=== PATIENT | female | born 1955 | race Caucasian/White ===

== ENCOUNTER 2020-06-29 04:24 | Inpatient (IN) ==
[2020-06-29] MEDS ORDERED: 0.9 % Sodium Chloride 1,000 ML IVC ONE (04:41)
[2020-06-29 05:38] LABS: Red Cell Distribution Width 15.6 % (11.5-14.5)
[2020-06-29 05:40] LABS: Bacteria,Urine Few per hpf (None-Few); Basophils % 0.4 %; Bilirubin,Urine Negative (Negative); Blood,Urine Moderate (Negative); Clarity,Urine Turbid (Clear); Color,Urine Yellow (Yellow); Eosinophils # 0.1 K/mcL (0.0-0.6); Eosinophils % 1.6 %; Glucose,Urine (UA) Normal (Normal); Hematocrit 38.4 % (35.3-44.9); Immature Granulocytes % 0.2 % (0-4); Immature Platelets 5.4 % (1.1-6.1); Ketones,Urine Negative (Negative); Leukocyte Esterase,Urine Large (Negative); Lymphocytes # 0.7 K/mcL (0.6-4.6); Lymphocytes % 12.9 %; Mean Corpuscular HGB Conc 31.3 g/dL (31.6-35.5); Mean Corpuscular Hemoglobin 28.9 pg (28.0-33.3); Mean Corpuscular Volume 92.5 fL (83.0-100.0); Monocytes # 0.5 K/mcL (0.0-1.3); Monocytes % 9.2 %; Mucus,Urine Few per lpf (None-Few); Neutrophils # 4.3 K/mcL (1.6-8.9); Nitrite,Urine Negative (Negative); Platelet Count 122 K/mcL (140-400); Protein,Urine 50 mg/dL (Neg-Trace); RBC,Urine 30-50 per hpf (0-3); Red Blood Count 4.15 M/mcL (3.82-4.97); Segmented Neutrophils % 75.7 %; Specific Gravity,Urine 1.015 (1.010-1.025); Squamous Epithelial Cell,Urine Moderate per hpf (None-Few); Transitional Epi Cells,Urine Few per hpf (None-Few); Urobilinogen,Urine >=8.0 mg/dL (Normal); WBC,Urine TNTC per hpf (0-3); White Blood Count 5.7 K/mcL (4.3-11.1)
[2020-06-29] MEDS ORDERED: *HR* FentaNYL (PF) 100 MCG/2 ML VIAL IVP ONE (05:54)
[2020-06-29 06:04] LABS: Alanine Aminotransferase 10 Units/L (7-52); Albumin 2.7 g/dL (3.5-5.7); Albumin/Globulin Ratio 0.6 (1.1-2.2); Alkaline Phosphatase 85 Units/L (34-104); Aspartate Amino Transferase 20 Units/L (13-39); BUN/Creatinine Ratio 28 (6-26); Bilirubin,Indirect 0.8 mg/dL (0.0-1.0); Bilirubin,Total 1.8 mg/dL (0.3-1.0); Blood Urea Nitrogen 13 mg/dL (8-23); Calcium 9.4 mg/dL (8.6-10.3); Carbon Dioxide 33 mEq/L (23-29); Chloride 97 mEq/L (98-107); Globulin 4.2 g/dL (2.4-3.5); Glucose 149 mg/dL (70-105); Lipase 61 Units/L (11-82); Osmolality,Calculated 285 (280-300); Potassium 2.5 mEq/L (3.5-5.1); Sodium 136 mEq/L (136-145); Total Protein 6.9 g/dL (6.4-8.9); eGFR For African Americans > 60 (> 60); eGFR For Non-African Americans > 60 (> 60)
[2020-06-29] MEDS ORDERED: Sulfamethoxazole/Trimeth DS 1 EACH TABLET PO ONE (06:31)
[2020-06-29 07:19] LABS: Adenovirus Not Detected (Not Detect); Bordetella Pertussis Not Detected (Not Detect); Chlamydophila pneumoniae Not Detected (Not Detect); Coronavirus 229E Not Detected (Not Detect); Coronavirus HKU1 Not Detected (Not Detect); Coronavirus NL63 Not Detected (Not Detect); Coronavirus OC43 Not Detected (Not Detect); Human Metapneumovirus Not Detected (Not Detect); Human Rhinovirus/Enterovirus Not Detected (Not Detect); Influenza A Subtype 2009 H1 Not Detected (Not Detect); Influenza B Not Detected (Not Detect); Mycoplasma pneumoniae Not Detected (Not Detect); Parainfluenza Virus 1 Not Detected (Not Detect); Parainfluenza Virus 2 Not Detected (Not Detect); Parainfluenza Virus 3 Not Detected (Not Detect); Parainfluenza Virus 4 Not Detected (Not Detect); Respiratory Syncytial Virus Not Detected (Not Detect); SARS-CoV-2 Not Detected (Not Detect)
[2020-06-29] MEDS ORDERED: Ondansetron 4 MG/2 ML VIAL IVP PRN (08:13)
[2020-06-29] MEDS ORDERED: Naloxone 0.4 MG/ML INJ IVP PRN (08:13)
[2020-06-29] MEDS ORDERED: Potassium Chloride 40 MEQ, Lidocaine 1% 2 ML in 0.9 % Sodium Chloride 500 ML IVPB ONE (08:14)
[2020-06-29] MEDS ORDERED: Dextrose Gel 15 GM/37.5 ML TUBE PO PRN ×2 (09:53)
[2020-06-29] MEDS ORDERED: D5% in Water 1,000 ML IVC PRN (09:53)
[2020-06-29] MEDS ORDERED: *HR* Dextrose 50 % in Water (Vial) 50 ML VIAL IVP PRN (09:53)
[2020-06-29] MEDS: Insulin LISPRO 300 UNITS/3 ML VIAL SQ SCH ×2 (12:34→18:15)
[2020-06-29 14:35] LABS: Magnesium 1.4 mg/dL (1.6-2.6); Potassium 3.1 mEq/L (3.5-5.1)
[2020-06-29] MEDS ORDERED: Potassium Chloride Elixir 20 MEQ/15 ML UDC PO ONE (15:24)
[2020-06-29] MEDS: *HR* HYDROcodone/Acet 5/325 mg TABLET PO PRN ×2 (16:13→23:44)
[2020-06-29] MEDS: Cefepime HCl 1,000 MG in 0.9 % Sodium Chloride Mini Bag 100 ML IVPB SCH ×2 (16:13→23:42)
[2020-06-29] MEDS: 0.9 % Sodium Chloride 1,000 ML IVC SCH (16:14)
[2020-06-29] MEDS: *HR* Heparin 5,000 UNIT/ML VIAL SQ SCH (16:15)
[2020-06-29] MEDS: Insulin DETEMIR 100 UNIT/ML X5UNITS SQ SCH (21:01)
[2020-06-29] MEDS: Pregabalin 50 MG CAPSULE PO SCH (21:02)
[2020-06-30] MEDS: *HR* Heparin 5,000 UNIT/ML VIAL SQ SCH ×2 (05:04→18:02)
[2020-06-30 07:36] LABS: Hemoglobin 10.9 g/dL (11.5-15.4); Immature Granulocytes % 0.2 % (0-4)
[2020-06-30 07:38] LABS: Basophils % 0.6 %; Eosinophils # 0.1 K/mcL (0.0-0.6); Hematocrit 34.2 % (35.3-44.9); Immature Platelets 5.4 % (1.1-6.1); Lymphocytes # 0.7 K/mcL (0.6-4.6); Lymphocytes % 14.2 %; Mean Corpuscular HGB Conc 31.9 g/dL (31.6-35.5); Mean Corpuscular Hemoglobin 30.4 pg (28.0-33.3); Mean Corpuscular Volume 95.3 fL (83.0-100.0); Mean Platelet Volume 11.8 fL (9.4-12.4); Monocytes # 0.5 K/mcL (0.0-1.3); Monocytes % 10.5 %; Neutrophils # 3.6 K/mcL (1.6-8.9); Platelet Count 103 K/mcL (140-400); Red Blood Count 3.59 M/mcL (3.82-4.97); Segmented Neutrophils % 72.5 %; White Blood Count 4.9 K/mcL (4.3-11.1)
[2020-06-30 07:56] LABS: BUN/Creatinine Ratio 29 (6-26); Blood Urea Nitrogen 11 mg/dL (8-23); Calcium 8.9 mg/dL (8.6-10.3); Carbon Dioxide 32 mEq/L (23-29); Chloride 103 mEq/L (98-107); Glucose 107 mg/dL (70-105); Osmolality,Calculated 286 (280-300); Potassium 3.2 mEq/L (3.5-5.1); Sodium 138 mEq/L (136-145); eGFR For African Americans > 60 (> 60); eGFR For Non-African Americans > 60 (> 60)
[2020-06-30] MEDS: 0.9 % Sodium Chloride 1,000 ML IVC SCH (08:13)
[2020-06-30] MEDS: Pregabalin 50 MG CAPSULE PO SCH ×3 (08:16→21:37)
[2020-06-30] MEDS: Cefepime HCl 1,000 MG in 0.9 % Sodium Chloride Mini Bag 100 ML IVPB SCH ×2 (08:18→14:43)
[2020-06-30] MEDS: atenoloL 50 MG TABLET PO SCH (08:18)
[2020-06-30] MEDS ORDERED: NON-FORMULARY MEDICATION 1 EACH EACH (Mirabegron [Myrbetriq] 50 MG) PO SCH (09:00)
[2020-06-30] MEDS: Insulin LISPRO 300 UNITS/3 ML VIAL SQ SCH ×3 (11:13→18:02)
[2020-06-30] MEDS: Insulin DETEMIR 100 UNIT/ML X5UNITS SQ SCH (21:37)
[2020-07-01] MEDS: Cefepime HCl 1,000 MG in 0.9 % Sodium Chloride Mini Bag 100 ML IVPB SCH ×3 (00:48→15:50)
[2020-07-01 01:10] LABS: Hemoglobin 10.9 g/dL (11.5-15.4)
[2020-07-01 01:11] LABS: Red Cell Distribution Width 15.9 % (11.5-14.5)
[2020-07-01 01:13] LABS: Basophils % 0.7 %; Eosinophils # 0.1 K/mcL (0.0-0.6); Eosinophils % 3.2 %; Hematocrit 35.1 % (35.3-44.9); Immature Granulocytes % 0.2 % (0-4); Immature Platelets 5.8 % (1.1-6.1); Lymphocytes # 0.8 K/mcL (0.6-4.6); Lymphocytes % 17.1 %; Mean Corpuscular HGB Conc 31.1 g/dL (31.6-35.5); Mean Corpuscular Hemoglobin 29.5 pg (28.0-33.3); Mean Corpuscular Volume 94.9 fL (83.0-100.0); Monocytes # 0.4 K/mcL (0.0-1.3); Monocytes % 9.5 %; Neutrophils # 3.1 K/mcL (1.6-8.9); Segmented Neutrophils % 69.3 %; White Blood Count 4.4 K/mcL (4.3-11.1)
[2020-07-01 01:25] LABS: BUN/Creatinine Ratio 38 (6-26); Blood Urea Nitrogen 11 mg/dL (8-23); Calcium 8.5 mg/dL (8.6-10.3); Carbon Dioxide 28 mEq/L (23-29); Chloride 105 mEq/L (98-107); Glucose 102 mg/dL (70-105); Osmolality,Calculated 282 (280-300); Potassium 3.8 mEq/L (3.5-5.1); Sodium 136 mEq/L (136-145); eGFR For African Americans > 60 (> 60); eGFR For Non-African Americans > 60 (> 60)
[2020-07-01 01:32] LABS: Platelet Count 98 K/mcL (140-400)
[2020-07-01 01:33] LABS: Platelet Estimate Slight Decrease (Normal)
[2020-07-01] MEDS: *HR* Heparin 5,000 UNIT/ML VIAL SQ SCH ×2 (06:31→17:58)
[2020-07-01] MEDS: Insulin LISPRO 300 UNITS/3 ML VIAL SQ SCH ×3 (08:16→17:57)
[2020-07-01] MEDS: Pregabalin 50 MG CAPSULE PO SCH ×3 (08:17→21:45)
[2020-07-01] MEDS: atenoloL 50 MG TABLET PO SCH (08:18)
[2020-07-01] MEDS: *HR* HYDROcodone/Acet 5/325 mg TABLET PO PRN ×2 (12:21→21:52)
[2020-07-01] MEDS: Insulin DETEMIR 100 UNIT/ML X5UNITS SQ SCH (21:49)
[2020-07-02 04:18] LABS: Eosinophils # 0.1 K/mcL (0.0-0.6); Eosinophils % 3.1 %; Hematocrit 35.3 % (35.3-44.9); Hemoglobin 10.9 g/dL (11.5-15.4); Immature Granulocytes % 0.5 % (0-4); Immature Platelets 4.9 % (1.1-6.1); Lymphocytes # 0.8 K/mcL (0.6-4.6); Lymphocytes % 19.5 %; Mean Corpuscular HGB Conc 30.9 g/dL (31.6-35.5); Mean Corpuscular Hemoglobin 29.7 pg (28.0-33.3); Mean Corpuscular Volume 96.2 fL (83.0-100.0); Monocytes # 0.4 K/mcL (0.0-1.3); Monocytes % 10.3 %; Neutrophils # 2.6 K/mcL (1.6-8.9); Platelet Count 105 K/mcL (140-400); Red Blood Count 3.67 M/mcL (3.82-4.97); Red Cell Distribution Width 15.9 % (11.5-14.5); Segmented Neutrophils % 65.6 %; White Blood Count 3.9 K/mcL (4.3-11.1)
[2020-07-02 04:31] LABS: BUN/Creatinine Ratio 41 (6-26); Blood Urea Nitrogen 13 mg/dL (8-23); Carbon Dioxide 28 mEq/L (23-29); Chloride 106 mEq/L (98-107); Glucose 99 mg/dL (70-105); Osmolality,Calculated 282 (280-300); Potassium 3.8 mEq/L (3.5-5.1); Sodium 136 mEq/L (136-145); eGFR For African Americans > 60 (> 60); eGFR For Non-African Americans > 60 (> 60)
[2020-07-02] MEDS: *HR* Heparin 5,000 UNIT/ML VIAL SQ SCH ×2 (05:18→17:21)
[2020-07-02] MEDS: Cefepime HCl 1,000 MG in 0.9 % Sodium Chloride Mini Bag 100 ML IVPB SCH ×3 (05:19→17:20)
[2020-07-02] MEDS: atenoloL 50 MG TABLET PO SCH (08:47)
[2020-07-02] MEDS: Pregabalin 50 MG CAPSULE PO SCH ×3 (08:47→21:23)
[2020-07-02] MEDS: *HR* HYDROcodone/Acet 5/325 mg TABLET PO PRN ×2 (08:52→17:22)
[2020-07-02] MEDS: Insulin LISPRO 300 UNITS/3 ML VIAL SQ SCH ×3 (08:52→17:20)
[2020-07-02] MEDS: Insulin DETEMIR 100 UNIT/ML X5UNITS SQ SCH (21:22)
[2020-07-03] MEDS: Cefepime HCl 1,000 MG in 0.9 % Sodium Chloride Mini Bag 100 ML IVPB SCH ×2 (01:03→08:45)
[2020-07-03] MEDS: *HR* Heparin 5,000 UNIT/ML VIAL SQ SCH (05:28)
[2020-07-03 05:52] LABS: Basophils % 0.5 %; Eosinophils # 0.1 K/mcL (0.0-0.6); Eosinophils % 2.6 %; Hematocrit 34.8 % (35.3-44.9); Hemoglobin 10.6 g/dL (11.5-15.4); Immature Granulocytes % 0.3 % (0-4); Lymphocytes % 19.6 %; Mean Corpuscular HGB Conc 30.5 g/dL (31.6-35.5); Mean Corpuscular Hemoglobin 29.3 pg (28.0-33.3); Mean Corpuscular Volume 96.1 fL (83.0-100.0); Mean Platelet Volume 11.4 fL (9.4-12.4); Monocytes # 0.4 K/mcL (0.0-1.3); Monocytes % 9.9 %; Neutrophils # 2.6 K/mcL (1.6-8.9); Platelet Count 103 K/mcL (140-400); Red Blood Count 3.62 M/mcL (3.82-4.97); Segmented Neutrophils % 67.1 %; White Blood Count 3.8 K/mcL (4.3-11.1)
[2020-07-03 05:54] LABS: Lymphocytes # 0.7 K/mcL (0.6-4.6)
[2020-07-03 06:16] LABS: BUN/Creatinine Ratio 40 (6-26); Blood Urea Nitrogen 12 mg/dL (8-23); Calcium 9.1 mg/dL (8.6-10.3); Carbon Dioxide 28 mEq/L (23-29); Chloride 106 mEq/L (98-107); Glucose 91 mg/dL (70-105); Osmolality,Calculated 281 (280-300); Potassium 4.1 mEq/L (3.5-5.1); Sodium 136 mEq/L (136-145); eGFR For African Americans > 60 (> 60); eGFR For Non-African Americans > 60 (> 60)
[2020-07-03 08:29] VITALS: BP 120/61
[2020-07-03] MEDS: atenoloL 50 MG TABLET PO SCH (08:45)
[2020-07-03] MEDS: Pregabalin 50 MG CAPSULE PO SCH (08:46)
[2020-07-03] MEDS: Insulin LISPRO 300 UNITS/3 ML VIAL SQ SCH (09:01)
[2020-07-03] MEDS: *HR* HYDROcodone/Acet 5/325 mg TABLET PO PRN (10:15)
== END 2020-07-03 11:15 | disposition home or self-care (01) | DRG 698 ==
LOC: 3ANU 04:24 → EMEROOARM 04:24 → SUATTDRO 08:33 → 3ANU 10:21 → SUATTDRO 06-30 15:03
PROVIDERS: ADMIT Internal Medicine; ATTEND Internal Medicine

== ENCOUNTER 2021-01-17 18:34 | Inpatient (IN) ==
[~2021-01-17 18:34] MED LIST: Cefepime HCl 1,000 MG in Water for inj. (sterile) 10 ML IVP ONE
[2021-01-17] MEDS ORDERED: Vancomycin 2,000 MG/520 ML IV.SOLN IVPB ONE (19:02)
[2021-01-17 19:38] LABS: Basophils % 0.4 %; Hemoglobin 10.6 g/dL (11.5-15.4); Immature Granulocytes % 0.4 % (0-4); Mean Corpuscular HGB Conc 29.4 g/dL (31.6-35.5); Mean Corpuscular Volume 97.8 fL (83.0-100.0); Mean Platelet Volume 12.8 fL (9.4-12.4)
[2021-01-17 19:40] LABS: Eosinophils # 0.1 K/mcL (0.0-0.6); Eosinophils % 1.4 %; Immature Platelets 11.5 % (1.1-6.1); Lymphocytes # 0.6 K/mcL (0.6-4.6); Lymphocytes % 12.6 %; Mean Corpuscular Hemoglobin 28.8 pg (28.0-33.3); Monocytes # 0.4 K/mcL (0.0-1.3); Monocytes % 7.8 %; Neutrophils # 3.9 K/mcL (1.6-8.9); Red Blood Count 3.68 M/mcL (3.82-4.97); Red Cell Distribution Width 17.6 % (11.5-14.5); Segmented Neutrophils % 77.4 %
[2021-01-17 19:43] LABS: Platelet Count 75 K/mcL (140-400)
[2021-01-17] MEDS ORDERED: *HR* FentaNYL (PF) 100 MCG/2 ML VIAL IVP ONE ×2 (19:44→23:11)
[2021-01-17 19:58] LABS: Alanine Aminotransferase 16 Units/L (7-52); Albumin 2.7 g/dL (3.5-5.7); Albumin/Globulin Ratio 0.7 (1.1-2.2); Alkaline Phosphatase 98 Units/L (34-104); Aspartate Amino Transferase 23 Units/L (13-39); BUN/Creatinine Ratio 50 (6-26); Bilirubin,Direct 0.6 mg/dL (0.0-0.2); Bilirubin,Indirect 0.9 mg/dL (0.0-1.0); Bilirubin,Total 1.5 mg/dL (0.3-1.0); Blood Urea Nitrogen 23 mg/dL (8-23); Calcium 9.5 mg/dL (8.6-10.3); Carbon Dioxide 31 mEq/L (23-29); Chloride 101 mEq/L (98-107); Creatine Kinase 11 Units/L (30-223); Ethanol < 10 mg/dL (Less than 10); Globulin 4.1 g/dL (2.4-3.5); Glucose 125 mg/dL (70-105); Lipase 6 Units/L (11-82); Osmolality,Calculated 297 (280-300); Potassium 4.8 mEq/L (3.5-5.1); Sodium 141 mEq/L (136-145); Total Protein 6.8 g/dL (6.4-8.9); Troponin I < 0.03 ng/mL (< 0.04); eGFR For African Americans > 60 (> 60); eGFR For Non-African Americans > 60 (> 60)
[2021-01-17 20:11] LABS: Thyroid Stimulating Hormone 1.835 mcIU/mL (0.340-5.600)
[2021-01-17] MEDS ORDERED: Lactulose Oral Soln 20 GM/30 ML UDC PO ONE (20:41)
[2021-01-17] MEDS ORDERED: Albumin 25% 25gram/100mL 25 GM/100 ML IV.SOLN IVPB ONE (20:42)
[2021-01-17 22:01] LABS: Amorphous Sediment,Urine Few per hpf (None-Few); Bacteria,Urine Moderate per hpf (None-Few); Bilirubin,Urine Negative (Negative); Blood,Urine Moderate (Negative); Clarity,Urine Ex.Turbid (Clear); Color,Urine Yellow (Yellow); Glucose,Urine (UA) Normal (Normal); Ketones,Urine Negative (Negative); Leukocyte Esterase,Urine Large (Negative); Mucus,Urine Moderate per lpf (None-Few); Nitrite,Urine Positive (Negative); PH,Urine 7.5 pH Units (5.0-8.0); Protein,Urine 50 mg/dL (Neg-Trace); RBC,Urine 0-3 per hpf (0-3); Specific Gravity,Urine 1.017 (1.010-1.025); Squamous Epithelial Cell,Urine Few per hpf (None-Few); Urobilinogen,Urine >=8.0 mg/dL (Normal); WBC,Urine TNTC per hpf (0-3)
[2021-01-17 22:03] LABS: Amphetamine Screen,Urine Negative ng/mL (Cutoff=1000); Barbiturate Screen,Urine Negative ng/mL (Cutoff=200); Benzodiazepines Screen,Urine Negative ng/mL (Cutoff=200); Cannabinoid Screen,Urine Negative ng/mL (Cutoff = 50); Cocaine Screen,Urine Negative ng/mL (Cutoff= 300); Opiate Screen,Urine Negative ng/mL (Cutoff=300); Phencyclidine Screen,Urine Negative ng/mL (Cutoff=25)
[2021-01-18] MEDS ORDERED: Naloxone 0.4 MG/ML INJ IVP PRN (01:19)
[2021-01-18] MEDS ORDERED: Acetaminophen 325 MG TABLET PO PRN (01:19)
[2021-01-18] MEDS ORDERED: Melatonin 3 MG TABLET PO PRN (01:19)
[2021-01-18 01:22] LABS: INR 1.4; Prothrombin Time 15.5 Seconds (9.4-12.1)
[2021-01-18] MEDS ORDERED: Ketorolac 30 MG/ML VIAL IVP PRN (01:22)
[2021-01-18 01:25] LABS: Activated Partial Thrombo Time 29.2 Seconds (26.0-36.0)
[2021-01-18] MEDS ORDERED: 0.9 % Sodium Chloride 1,000 ML IVC ONE ×3 (02:10→07:49)
[2021-01-18] MEDS ORDERED: *HR* LORazepam 2 MG/ML VIAL IVP ONE ×2 (02:11→11:21)
[2021-01-18] MEDS: Nystatin POWDER 30 GM BOTTLE TP SCH ×4 (05:40→22:54)
[2021-01-18 07:22] LABS: Hemoglobin 10.2 g/dL (11.5-15.4); Immature Granulocytes % 0.5 % (0-4)
[2021-01-18 07:23] LABS: Basophils % 0.5 %; Eosinophils # 0.1 K/mcL (0.0-0.6); Eosinophils % 1.6 %; Immature Platelets 9.8 % (1.1-6.1); Lymphocytes # 0.6 K/mcL (0.6-4.6); Lymphocytes % 13.8 %; Mean Corpuscular Hemoglobin 28.8 pg (28.0-33.3); Monocytes # 0.4 K/mcL (0.0-1.3); Monocytes % 8.7 %; Neutrophils # 3.3 K/mcL (1.6-8.9); Red Blood Count 3.54 M/mcL (3.82-4.97); Red Cell Distribution Width 17.5 % (11.5-14.5); Segmented Neutrophils % 74.9 %; White Blood Count 4.4 K/mcL (4.3-11.1)
[2021-01-18 07:24] LABS: Platelet Count 69 K/mcL (140-400)
[2021-01-18] MEDS ORDERED: *HR* Dextrose 50 % in Water (Vial) 50 ML VIAL IVP PRN (07:26)
[2021-01-18] MEDS ORDERED: D5% in Water 1,000 ML IVC PRN (07:26)
[2021-01-18] MEDS ORDERED: Dextrose Gel 15 GM/37.5 ML TUBE PO PRN ×2 (07:26)
[2021-01-18] MEDS ORDERED: Lactulose 200 GM, Sodium Chloride IRRigation 700 ML RC PRN (07:47)
[2021-01-18 08:23] LABS: Alanine Aminotransferase 12 Units/L (7-52); Albumin 2.9 g/dL (3.5-5.7); Albumin/Globulin Ratio 0.8 (1.1-2.2); Alkaline Phosphatase 93 Units/L (34-104); Aspartate Amino Transferase 22 Units/L (13-39); BUN/Creatinine Ratio 53 (6-26); Bilirubin,Total 1.3 mg/dL (0.3-1.0); Blood Urea Nitrogen 21 mg/dL (8-23); Calcium 9.4 mg/dL (8.6-10.3); Carbon Dioxide 31 mEq/L (23-29); Chloride 103 mEq/L (98-107); Globulin 3.7 g/dL (2.4-3.5); Glucose 112 mg/dL (70-105); Magnesium 1.4 mg/dL (1.6-2.6); Osmolality,Calculated 290 (280-300); Phosphorous 2.1 mg/dL (2.7-4.5); Potassium 3.9 mEq/L (3.5-5.1); Sodium 138 mEq/L (136-145); Total Protein 6.6 g/dL (6.4-8.9); eGFR For African Americans > 60 (> 60); eGFR For Non-African Americans > 60 (> 60)
[2021-01-18] MEDS: Lactulose Oral Soln 20 GM/30 ML UDC PO SCH ×2 (08:49→11:12)
[2021-01-18] MEDS ORDERED: Acetaminophen IV 500 MG/50 ML BAG IVPB ONE (11:21)
[2021-01-18] MEDS: Cefepime HCl 2,000 MG in Water for inj. (sterile) 20 ML IVP SCH (11:46)
[2021-01-18] MEDS: Lactulose 200 GM, Sodium Chloride IRRigation 700 ML RC SCH ×2 (14:10→21:47)
[2021-01-18] MEDS: Insulin LISPRO 300 UNITS/3 ML VIAL SUBQ SCH ×2 (14:11→18:14)
[2021-01-18] MEDS: MetroNIDAZOLE 500 MG/100 ML 500 MG/100 ML BAG IVPB SCH ×2 (17:16→18:48)
[2021-01-18] MEDS: *HR* Heparin 5,000 UNIT/ML VIAL SQ SCH (17:37)
[2021-01-18] MEDS ORDERED: *HR* Heparin 5,000 UNIT/ML VIAL SQ SCH (18:00)
[2021-01-18] MEDS: Ketorolac 15 MG/ML VIAL IVP PRN (19:58)
[2021-01-18] MEDS ORDERED: Ketorolac 15 MG/ML VIAL IVP ONE (21:12)
[2021-01-19] MEDS: Insulin LISPRO 300 UNITS/3 ML VIAL SUBQ SCH ×4 (00:07→21:53)
[2021-01-19] MEDS: Nitroglycerin 0.4 MG TAB.SUBL SL PRN ×2 (00:13→00:22)
[2021-01-19] MEDS ORDERED: Melatonin 3 MG TABLET PO ONE (00:38)
[2021-01-19] MEDS: MetroNIDAZOLE 500 MG/100 ML 500 MG/100 ML BAG IVPB SCH ×3 (00:53→17:53)
[2021-01-19] MEDS: Cefepime HCl 2,000 MG in Water for inj. (sterile) 20 ML IVP SCH ×2 (00:54→12:06)
[2021-01-19] MEDS ORDERED: *HR* HYDROcodone/Acet 5/325 mg TABLET PO PRN (01:45)
[2021-01-19] MEDS ORDERED: Morphine Sulfate 2 MG/ML SYRINGE IVP ONE (01:45)
[2021-01-19] MEDS: Ketorolac 15 MG/ML VIAL IVP PRN (04:23)
[2021-01-19] MEDS: *HR* Heparin 5,000 UNIT/ML VIAL SQ SCH ×2 (05:12→17:54)
[2021-01-19 05:57] LABS: Basophils % 0.3 %; Hemoglobin 10.8 g/dL (11.5-15.4)
[2021-01-19 05:59] LABS: Eosinophils # 0.1 K/mcL (0.0-0.6); Eosinophils % 2.5 %; Hematocrit 34.2 % (35.3-44.9); Immature Granulocytes % 0.3 % (0-4); Immature Platelets 6.6 % (1.1-6.1); Lymphocytes # 0.5 K/mcL (0.6-4.6); Lymphocytes % 13.9 %; Mean Corpuscular HGB Conc 31.6 g/dL (31.6-35.5); Mean Corpuscular Hemoglobin 29.8 pg (28.0-33.3); Mean Corpuscular Volume 94.2 fL (83.0-100.0); Mean Platelet Volume 12.5 fL (9.4-12.4); Monocytes # 0.4 K/mcL (0.0-1.3); Monocytes % 9.5 %; Neutrophils # 2.7 K/mcL (1.6-8.9); Red Blood Count 3.63 M/mcL (3.82-4.97); Red Cell Distribution Width 17.7 % (11.5-14.5); Segmented Neutrophils % 73.5 %; White Blood Count 3.7 K/mcL (4.3-11.1)
[2021-01-19 06:04] LABS: INR 1.4; Prothrombin Time 15.5 Seconds (9.4-12.1)
[2021-01-19 06:08] LABS: Platelet Count 79 K/mcL (140-400)
[2021-01-19 06:14] LABS: Alanine Aminotransferase 13 Units/L (7-52); Albumin 2.9 g/dL (3.5-5.7); Albumin/Globulin Ratio 0.8 (1.1-2.2); Alkaline Phosphatase 84 Units/L (34-104); Aspartate Amino Transferase 23 Units/L (13-39); BUN/Creatinine Ratio 50 (6-26); Bilirubin,Direct 0.5 mg/dL (0.0-0.2); Bilirubin,Total 1.5 mg/dL (0.3-1.0); Blood Urea Nitrogen 19 mg/dL (8-23); Calcium 9.5 mg/dL (8.6-10.3); Carbon Dioxide 29 mEq/L (23-29); Chloride 105 mEq/L (98-107); Globulin 3.7 g/dL (2.4-3.5); Glucose 93 mg/dL (70-105); Osmolality,Calculated 290 (280-300); Potassium 3.7 mEq/L (3.5-5.1); Sodium 139 mEq/L (136-145); Total Protein 6.6 g/dL (6.4-8.9); eGFR For African Americans > 60 (> 60); eGFR For Non-African Americans > 60 (> 60)
[2021-01-19] MEDS: Lactulose Oral Soln 20 GM/30 ML UDC PO SCH ×2 (09:12→21:35)
[2021-01-19] MEDS: Nystatin POWDER 30 GM BOTTLE TP SCH ×3 (10:05→21:36)
[2021-01-19] MEDS ORDERED: *HR* OxyCODONE Immed Rel 5 MG TABLET PO PRN (10:27)
[2021-01-19] MEDS: Pregabalin 50 MG CAPSULE PO SCH ×2 (10:53→21:35)
[2021-01-19] MEDS: Furosemide 40 MG TABLET PO SCH (10:53)
[2021-01-19] MEDS: *HR* OxyCODONE Immed Rel 5 MG TABLET PO PRN (12:08)
[2021-01-19] MEDS: Ondansetron 4 MG/2 ML VIAL IVP PRN (13:49)
[2021-01-19] MEDS: Melatonin 3 MG TABLET PO SCH (21:36)
[2021-01-20] MEDS: Cefepime HCl 2,000 MG in Water for inj. (sterile) 20 ML IVP SCH (01:18)
[2021-01-20] MEDS: MetroNIDAZOLE 500 MG/100 ML 500 MG/100 ML BAG IVPB SCH (01:23)
[2021-01-20 03:32] LABS: Mean Corpuscular Volume 98.1 fL (83.0-100.0); Segmented Neutrophils % 71.7 %
[2021-01-20 03:34] LABS: Basophils % 0.6 %; Eosinophils # 0.1 K/mcL (0.0-0.6); Eosinophils % 2.8 %; Hematocrit 35.6 % (35.3-44.9); Hemoglobin 10.6 g/dL (11.5-15.4); Immature Granulocytes % 0.3 % (0-4); Immature Platelets 8.6 % (1.1-6.1); Lymphocytes # 0.4 K/mcL (0.6-4.6); Mean Corpuscular HGB Conc 29.8 g/dL (31.6-35.5); Mean Corpuscular Hemoglobin 29.2 pg (28.0-33.3); Mean Platelet Volume 12.2 fL (9.4-12.4); Monocytes # 0.4 K/mcL (0.0-1.3); Monocytes % 12.6 %; Neutrophils # 2.4 K/mcL (1.6-8.9); Platelet Count 75 K/mcL (140-400); Red Blood Count 3.63 M/mcL (3.82-4.97); Red Cell Distribution Width 17.8 % (11.5-14.5); White Blood Count 3.3 K/mcL (4.3-11.1)
[2021-01-20 03:40] LABS: INR 1.3; Prothrombin Time 14.6 Seconds (9.4-12.1)
[2021-01-20 03:48] LABS: Alanine Aminotransferase 14 Units/L (7-52); Albumin 2.8 g/dL (3.5-5.7); Albumin/Globulin Ratio 0.7 (1.1-2.2); Alkaline Phosphatase 83 Units/L (34-104); Aspartate Amino Transferase 21 Units/L (13-39); BUN/Creatinine Ratio 46 (6-26); Bilirubin,Direct 0.5 mg/dL (0.0-0.2); Bilirubin,Indirect 0.6 mg/dL (0.0-1.0); Bilirubin,Total 1.1 mg/dL (0.3-1.0); Blood Urea Nitrogen 17 mg/dL (8-23); Carbon Dioxide 32 mEq/L (23-29); Chloride 104 mEq/L (98-107); Globulin 3.8 g/dL (2.4-3.5); Glucose 107 mg/dL (70-105); Osmolality,Calculated 294 (280-300); Potassium 3.8 mEq/L (3.5-5.1); Sodium 141 mEq/L (136-145); Total Protein 6.6 g/dL (6.4-8.9); eGFR For African Americans > 60 (> 60); eGFR For Non-African Americans > 60 (> 60)
[2021-01-20] MEDS: *HR* Heparin 5,000 UNIT/ML VIAL SQ SCH ×2 (05:14→20:29)
[2021-01-20] MEDS: Insulin LISPRO 300 UNITS/3 ML VIAL SUBQ SCH ×4 (07:51→20:49)
[2021-01-20 08:18] LABS: Magnesium 1.6 mg/dL (1.6-2.6); Phosphorous 2.9 mg/dL (2.7-4.5)
[2021-01-20] MEDS: Pregabalin 50 MG CAPSULE PO SCH ×3 (10:02→20:29)
[2021-01-20] MEDS: Furosemide 40 MG TABLET PO SCH (10:04)
[2021-01-20] MEDS: Albumin 25% 25gram/100mL 25 GM/100 ML IV.SOLN IVPB SCH ×2 (10:05→16:28)
[2021-01-20] MEDS: Lactulose Oral Soln 20 GM/30 ML UDC PO SCH ×3 (10:05→20:28)
[2021-01-20] MEDS: *HR* OxyCODONE Immed Rel 5 MG TABLET PO PRN (11:13)
[2021-01-20] MEDS: cefTRIAXone 1,000 MG in 0.9 % Sodium Chloride Mini Bag 100 ML IVPB SCH (13:01)
[2021-01-20] MEDS: Nystatin POWDER 30 GM BOTTLE TP SCH ×3 (13:24→20:32)
[2021-01-20 13:32] LABS: RBC,Peritoneal Fluid < 2000 RBC/mcL
[2021-01-20 13:43] LABS: Amylase,Peritoneal Fluid < 10 Units/L (No Ref Range); Glucose,Peritoneal Fluid 111 mg/dL (No Ref Range); LDH,Peritoneal Fluid 41 Units/L (No Ref Range); Total Protein,Peritoneal Fluid 2.2 g/dL
[2021-01-20 14:17] LABS: Appearance of Peritoneal Fl CLEAR (Clear); Basophils,Peritoneal Fluid 0 %; Eosinophils,Peritoneal Fluid 0 %
[2021-01-20] MEDS: Melatonin 3 MG TABLET PO SCH (20:28)
[2021-01-20] MEDS: Ondansetron 4 MG/2 ML VIAL IVP PRN (20:41)
[2021-01-21 02:04] LABS: Basophils % 0.5 %; Eosinophils % 0.9 %; Hematocrit 34.5 % (35.3-44.9); Hemoglobin 10.2 g/dL (11.5-15.4); Immature Granulocytes % 0.9 % (0-4); Immature Platelets 9.3 % (1.1-6.1); Lymphocytes # 0.4 K/mcL (0.6-4.6); Lymphocytes % 8.9 %; Mean Corpuscular HGB Conc 29.6 g/dL (31.6-35.5); Mean Corpuscular Hemoglobin 28.9 pg (28.0-33.3); Mean Corpuscular Volume 97.7 fL (83.0-100.0); Mean Platelet Volume 12.1 fL (9.4-12.4); Monocytes # 0.5 K/mcL (0.0-1.3); Monocytes % 10.8 %; Neutrophils # 3.4 K/mcL (1.6-8.9); Platelet Count 73 K/mcL (140-400); Red Blood Count 3.53 M/mcL (3.82-4.97); Red Cell Distribution Width 17.2 % (11.5-14.5); White Blood Count 4.4 K/mcL (4.3-11.1)
[2021-01-21 02:11] LABS: INR 1.3; Prothrombin Time 14.8 Seconds (9.4-12.1)
[2021-01-21 02:19] LABS: Alanine Aminotransferase 12 Units/L (7-52); Albumin/Globulin Ratio 0.9 (1.1-2.2); Alkaline Phosphatase 72 Units/L (34-104); Aspartate Amino Transferase 19 Units/L (13-39); BUN/Creatinine Ratio 44 (6-26); Bilirubin,Direct 0.5 mg/dL (0.0-0.2); Bilirubin,Indirect 0.7 mg/dL (0.0-1.0); Bilirubin,Total 1.2 mg/dL (0.3-1.0); Blood Urea Nitrogen 15 mg/dL (8-23); Carbon Dioxide 32 mEq/L (23-29); Chloride 102 mEq/L (98-107); Globulin 3.2 g/dL (2.4-3.5); Glucose 148 mg/dL (70-105); Magnesium 1.5 mg/dL (1.6-2.6); Osmolality,Calculated 292 (280-300); Phosphorous 2.2 mg/dL (2.7-4.5); Potassium 3.4 mEq/L (3.5-5.1); Sodium 139 mEq/L (136-145); Total Protein 6.2 g/dL (6.4-8.9); eGFR For African Americans > 60 (> 60); eGFR For Non-African Americans > 60 (> 60)
[2021-01-21] MEDS: *HR* Heparin 5,000 UNIT/ML VIAL SQ SCH ×2 (05:55→21:00)
[2021-01-21] MEDS ORDERED: Potassium Chloride Elixir 20 MEQ/15 ML UDC PO ONE (09:00)
[2021-01-21] MEDS: Insulin LISPRO 300 UNITS/3 ML VIAL SUBQ SCH ×4 (10:02→20:58)
[2021-01-21] MEDS: Pregabalin 50 MG CAPSULE PO SCH ×3 (10:03→20:48)
[2021-01-21] MEDS: Furosemide 40 MG TABLET PO SCH (10:04)
[2021-01-21] MEDS: atenoloL 50 MG TABLET PO SCH (10:04)
[2021-01-21] MEDS: Lactulose Oral Soln 20 GM/30 ML UDC PO SCH ×3 (10:07→20:47)
[2021-01-21] MEDS: Nystatin POWDER 30 GM BOTTLE TP SCH ×3 (10:27→21:00)
[2021-01-21] MEDS: cefTRIAXone 1,000 MG in 0.9 % Sodium Chloride Mini Bag 100 ML IVPB SCH (11:44)
[2021-01-21 12:32] LABS: Fluid Source for Triglycerides PERITONEAL FL
[2021-01-21] MEDS: *HR* OxyCODONE Immed Rel 5 MG TABLET PO PRN (13:38)
[2021-01-21 14:37] LABS: Triglycerides,Body Fluid 26 mg/dL
[2021-01-21] MEDS: Melatonin 3 MG TABLET PO SCH (20:48)
[2021-01-21 21:58] LABS: Fluid Source for Albumin PERITONEAL
[2021-01-22] MEDS: *HR* Heparin 5,000 UNIT/ML VIAL SQ SCH ×2 (05:20→17:22)
[2021-01-22 07:21] LABS: INR 1.3; Prothrombin Time 15.2 Seconds (9.4-12.1)
[2021-01-22 08:06] LABS: Eosinophils # 0.1 K/mcL (0.0-0.6); Eosinophils % 2.7 %; Hematocrit 36.9 % (35.3-44.9); Hemoglobin 10.8 g/dL (11.5-15.4); Immature Granulocytes % 1.2 % (0-4); Immature Platelets 13.4 % (1.1-6.1); Lymphocytes # 0.4 K/mcL (0.6-4.6); Lymphocytes % 10.6 %; Mean Corpuscular HGB Conc 29.3 g/dL (31.6-35.5); Mean Corpuscular Volume 98.9 fL (83.0-100.0); Mean Platelet Volume 12.6 fL (9.4-12.4); Monocytes # 0.4 K/mcL (0.0-1.3); Monocytes % 9.9 %; Red Blood Count 3.73 M/mcL (3.82-4.97); Red Cell Distribution Width 17.2 % (11.5-14.5); Segmented Neutrophils % 74.6 %; White Blood Count 4.1 K/mcL (4.3-11.1)
[2021-01-22 08:07] LABS: Neutrophils # 3.1 K/mcL (1.6-8.9); Platelet Count 84 K/mcL (140-400)
[2021-01-22 08:21] LABS: Magnesium 1.7 mg/dL (1.6-2.6); Phosphorous 2.1 mg/dL (2.7-4.5)
[2021-01-22 08:23] LABS: Alanine Aminotransferase 12 Units/L (7-52); Albumin 2.9 g/dL (3.5-5.7); Albumin/Globulin Ratio 0.9 (1.1-2.2); Alkaline Phosphatase 76 Units/L (34-104); Aspartate Amino Transferase 18 Units/L (13-39); BUN/Creatinine Ratio 34 (6-26); Bilirubin,Direct 0.3 mg/dL (0.0-0.2); Bilirubin,Indirect 0.6 mg/dL (0.0-1.0); Bilirubin,Total 0.9 mg/dL (0.3-1.0); Blood Urea Nitrogen 12 mg/dL (8-23); Carbon Dioxide 36 mEq/L (23-29); Chloride 101 mEq/L (98-107); Globulin 3.3 g/dL (2.4-3.5); Glucose 114 mg/dL (70-105); Osmolality,Calculated 287 (280-300); Potassium 3.5 mEq/L (3.5-5.1); Sodium 138 mEq/L (136-145); Total Protein 6.2 g/dL (6.4-8.9); eGFR For African Americans > 60 (> 60); eGFR For Non-African Americans > 60 (> 60)
[2021-01-22] MEDS: Furosemide 40 MG TABLET PO SCH (09:04)
[2021-01-22] MEDS: Pregabalin 50 MG CAPSULE PO SCH ×3 (09:04→20:13)
[2021-01-22] MEDS: Nystatin POWDER 30 GM BOTTLE TP SCH ×3 (09:05→20:14)
[2021-01-22] MEDS: cefTRIAXone 1,000 MG in 0.9 % Sodium Chloride Mini Bag 100 ML IVPB SCH (09:06)
[2021-01-22] MEDS: *HR* OxyCODONE Immed Rel 5 MG TABLET PO PRN ×2 (09:08→17:21)
[2021-01-22] MEDS: atenoloL 50 MG TABLET PO SCH (09:08)
[2021-01-22] MEDS: Insulin LISPRO 300 UNITS/3 ML VIAL SUBQ SCH ×4 (09:09→20:18)
[2021-01-22] MEDS: Lactulose Oral Soln 20 GM/30 ML UDC PO SCH ×3 (09:10→20:14)
[2021-01-22 12:25] LABS: Amphetamine Screen,Urine Negative ng/mL (Cutoff=1000); Barbiturate Screen,Urine Negative ng/mL (Cutoff=200); Benzodiazepines Screen,Urine Negative ng/mL (Cutoff=200); Cannabinoid Screen,Urine Negative ng/mL (Cutoff = 50); Cocaine Screen,Urine Negative ng/mL (Cutoff= 300); Opiate Screen,Urine Positive ng/mL (Cutoff=300); Phencyclidine Screen,Urine Negative ng/mL (Cutoff=25)
[2021-01-22] MEDS: Melatonin 3 MG TABLET PO SCH (20:13)
[2021-01-23] MEDS: *HR* OxyCODONE Immed Rel 5 MG TABLET PO PRN (05:11)
[2021-01-23] MEDS: tiZANidine 4 MG TABLET PO PRN (05:12)
[2021-01-23] MEDS: *HR* Heparin 5,000 UNIT/ML VIAL SQ SCH ×2 (05:14→17:05)
[2021-01-23 05:48] LABS: Immature Granulocytes % 0.9 % (0-4); Red Cell Distribution Width 17.2 % (11.5-14.5)
[2021-01-23 05:50] LABS: Basophils % 0.7 %; Eosinophils # 0.1 K/mcL (0.0-0.6); Eosinophils % 2.6 %; Hematocrit 35.4 % (35.3-44.9); Hemoglobin 10.6 g/dL (11.5-15.4); Immature Platelets 8.7 % (1.1-6.1); Lymphocytes # 0.5 K/mcL (0.6-4.6); Lymphocytes % 9.8 %; Mean Corpuscular HGB Conc 29.9 g/dL (31.6-35.5); Mean Corpuscular Hemoglobin 29.4 pg (28.0-33.3); Mean Corpuscular Volume 98.3 fL (83.0-100.0); Mean Platelet Volume 11.9 fL (9.4-12.4); Monocytes # 0.5 K/mcL (0.0-1.3); Monocytes % 10.5 %; Neutrophils # 3.5 K/mcL (1.6-8.9); Platelet Count 91 K/mcL (140-400); Segmented Neutrophils % 75.5 %; White Blood Count 4.6 K/mcL (4.3-11.1)
[2021-01-23 06:15] LABS: % Iron Saturation 16 % (15-50); BUN/Creatinine Ratio 33 (6-26); Blood Urea Nitrogen 11 mg/dL (8-23); Calcium 9.2 mg/dL (8.6-10.3); Carbon Dioxide 35 mEq/L (23-29); Chloride 99 mEq/L (98-107); Glucose 128 mg/dL (70-105); Iron 48 mcg/dL (50-170); Magnesium 1.5 mg/dL (1.6-2.6); Osmolality,Calculated 283 (280-300); Potassium 3.6 mEq/L (3.5-5.1); Sodium 136 mEq/L (136-145); Transferrin 208 mg/dL (203-362); eGFR For African Americans > 60 (> 60); eGFR For Non-African Americans > 60 (> 60)
[2021-01-23 06:32] LABS: Ferritin 29 ng/mL (10-120)
[2021-01-23 06:37] LABS: Folate 16.7 ng/mL (3.0-16.0)
[2021-01-23 07:51] LABS: Estimated Average Glucose 108 mg/dl; Hemoglobin A1C 5.4 %
[2021-01-23] MEDS: cefTRIAXone 1,000 MG in 0.9 % Sodium Chloride Mini Bag 100 ML IVPB SCH (09:12)
[2021-01-23] MEDS: Furosemide 40 MG TABLET PO SCH (09:12)
[2021-01-23] MEDS: Lactulose Oral Soln 20 GM/30 ML UDC PO SCH ×3 (09:12→21:27)
[2021-01-23] MEDS: Pregabalin 50 MG CAPSULE PO SCH ×3 (09:12→21:26)
[2021-01-23] MEDS: Nystatin POWDER 30 GM BOTTLE TP SCH ×3 (09:13→21:36)
[2021-01-23] MEDS: Insulin LISPRO 300 UNITS/3 ML VIAL SUBQ SCH ×4 (09:36→21:31)
[2021-01-23 10:12] LABS: VBG HCO3 39 mEq/L (21-27); VBG PCO2 78 mmHg (41-51); VBG PH 7.31 pH Units (7.32-7.42); VBG PO2 98 mmHg (25-50)
[2021-01-23] MEDS ORDERED: Iron Sucrose Complex 250 MG in 0.9 % Sodium Chloride 250 ML IVPB ONE (13:51)
[2021-01-23] MEDS: Melatonin 3 MG TABLET PO SCH (21:26)
[2021-01-24] MEDS: *HR* OxyCODONE Immed Rel 5 MG TABLET PO PRN ×3 (01:32→21:29)
[2021-01-24] MEDS: tiZANidine 4 MG TABLET PO PRN ×2 (02:38→23:40)
[2021-01-24] MEDS: *HR* Heparin 5,000 UNIT/ML VIAL SQ SCH ×2 (05:16→17:44)
[2021-01-24 05:35] LABS: Basophils % 0.5 %; Eosinophils # 0.1 K/mcL (0.0-0.6); Eosinophils % 2.4 %; Hematocrit 32.1 % (35.3-44.9); Hemoglobin 9.6 g/dL (11.5-15.4); Immature Granulocytes % 1.1 % (0-4); Immature Platelets 10.3 % (1.1-6.1); Lymphocytes # 0.5 K/mcL (0.6-4.6); Lymphocytes % 13.1 %; Mean Corpuscular HGB Conc 29.9 g/dL (31.6-35.5); Mean Corpuscular Hemoglobin 29.4 pg (28.0-33.3); Mean Corpuscular Volume 98.5 fL (83.0-100.0); Mean Platelet Volume 12.2 fL (9.4-12.4); Monocytes # 0.4 K/mcL (0.0-1.3); Monocytes % 11.8 %; Neutrophils # 2.6 K/mcL (1.6-8.9); Platelet Count 76 K/mcL (140-400); Red Blood Count 3.26 M/mcL (3.82-4.97); Red Cell Distribution Width 17.5 % (11.5-14.5); Segmented Neutrophils % 71.1 %; White Blood Count 3.7 K/mcL (4.3-11.1)
[2021-01-24 05:53] LABS: BUN/Creatinine Ratio 30 (6-26); Blood Urea Nitrogen 10 mg/dL (8-23); Calcium 9.3 mg/dL (8.6-10.3); Carbon Dioxide 37 mEq/L (23-29); Chloride 99 mEq/L (98-107); Glucose 162 mg/dL (70-105); Magnesium 1.6 mg/dL (1.6-2.6); Osmolality,Calculated 287 (280-300); Potassium 3.7 mEq/L (3.5-5.1); Sodium 137 mEq/L (136-145); eGFR For African Americans > 60 (> 60); eGFR For Non-African Americans > 60 (> 60)
[2021-01-24] MEDS: Furosemide 40 MG TABLET PO SCH (08:01)
[2021-01-24] MEDS: atenoloL 50 MG TABLET PO SCH (08:01)
[2021-01-24] MEDS: Pregabalin 50 MG CAPSULE PO SCH ×3 (08:02→21:20)
[2021-01-24] MEDS: cefTRIAXone 1,000 MG in 0.9 % Sodium Chloride Mini Bag 100 ML IVPB SCH (08:03)
[2021-01-24] MEDS: Lactulose Oral Soln 20 GM/30 ML UDC PO SCH ×3 (08:04→21:21)
[2021-01-24] MEDS: Insulin LISPRO 300 UNITS/3 ML VIAL SUBQ SCH ×4 (08:19→21:23)
[2021-01-24] MEDS: Nystatin POWDER 30 GM BOTTLE TP SCH ×3 (11:41→21:22)
[2021-01-24] MEDS: Melatonin 3 MG TABLET PO SCH (21:19)
[2021-01-24] MEDS ORDERED: Acetaminophen IV 1,000 MG/100 ML BAG IVPB ONE (23:08)
[2021-01-25] MEDS: *HR* Heparin 5,000 UNIT/ML VIAL SQ SCH ×2 (06:05→17:52)
[2021-01-25 06:39] LABS: Mean Corpuscular Volume 99.1 fL (83.0-100.0)
[2021-01-25 06:41] LABS: Basophils % 0.3 %; Eosinophils # 0.1 K/mcL (0.0-0.6); Hemoglobin 9.8 g/dL (11.5-15.4); Immature Granulocytes % 0.3 % (0-4); Immature Platelets 10.5 % (1.1-6.1); Lymphocytes # 0.6 K/mcL (0.6-4.6); Lymphocytes % 18.9 %; Mean Corpuscular HGB Conc 29.7 g/dL (31.6-35.5); Mean Corpuscular Hemoglobin 29.4 pg (28.0-33.3); Mean Platelet Volume 12.2 fL (9.4-12.4); Monocytes # 0.4 K/mcL (0.0-1.3); Monocytes % 11.5 %; Platelet Count 71 K/mcL (140-400); Red Blood Count 3.33 M/mcL (3.82-4.97); Red Cell Distribution Width 17.6 % (11.5-14.5)
[2021-01-25 06:52] LABS: BUN/Creatinine Ratio 35 (6-26); Blood Urea Nitrogen 13 mg/dL (8-23); Calcium 9.5 mg/dL (8.6-10.3); Carbon Dioxide 38 mEq/L (23-29); Chloride 98 mEq/L (98-107); Glucose 153 mg/dL (70-105); Magnesium 1.5 mg/dL (1.6-2.6); Osmolality,Calculated 295 (280-300); Potassium 3.8 mEq/L (3.5-5.1); Sodium 141 mEq/L (136-145); eGFR For African Americans > 60 (> 60); eGFR For Non-African Americans > 60 (> 60)
[2021-01-25] MEDS: Nystatin POWDER 30 GM BOTTLE TP SCH ×3 (09:28→23:50)
[2021-01-25] MEDS: *HR* OxyCODONE Immed Rel 5 MG TABLET PO PRN ×2 (09:29→17:59)
[2021-01-25] MEDS: Pregabalin 50 MG CAPSULE PO SCH ×3 (09:29→23:51)
[2021-01-25] MEDS: Furosemide 40 MG TABLET PO SCH (09:29)
[2021-01-25] MEDS: Insulin LISPRO 300 UNITS/3 ML VIAL SUBQ SCH ×4 (09:31→23:57)
[2021-01-25] MEDS: Lactulose Oral Soln 20 GM/30 ML UDC PO SCH ×3 (09:32→23:50)
[2021-01-25] MEDS: Melatonin 3 MG TABLET PO SCH (23:51)
[2021-01-26 04:59] LABS: Mean Corpuscular Volume 99.4 fL (83.0-100.0)
[2021-01-26 05:01] LABS: Basophils % 0.7 %; Eosinophils # 0.1 K/mcL (0.0-0.6); Eosinophils % 4.7 %; Hematocrit 34.1 % (35.3-44.9); Hemoglobin 10.1 g/dL (11.5-15.4); Immature Platelets 8.4 % (1.1-6.1); Lymphocytes # 0.4 K/mcL (0.6-4.6); Lymphocytes % 12.9 %; Mean Corpuscular HGB Conc 29.6 g/dL (31.6-35.5); Mean Corpuscular Hemoglobin 29.4 pg (28.0-33.3); Mean Platelet Volume 11.6 fL (9.4-12.4); Monocytes # 0.3 K/mcL (0.0-1.3); Monocytes % 10.5 %; Neutrophils # 2.1 K/mcL (1.6-8.9); Platelet Count 74 K/mcL (140-400); Red Blood Count 3.43 M/mcL (3.82-4.97); Red Cell Distribution Width 17.7 % (11.5-14.5); Segmented Neutrophils % 70.2 %
[2021-01-26 05:06] LABS: VBG HCO3 37 mEq/L (21-27); VBG PCO2 65 mmHg (41-51); VBG PH 7.37 pH Units (7.32-7.42); VBG PO2 100 mmHg (25-50)
[2021-01-26] MEDS: *HR* Heparin 5,000 UNIT/ML VIAL SQ SCH ×2 (05:09→17:32)
[2021-01-26] MEDS: *HR* OxyCODONE Immed Rel 5 MG TABLET PO PRN ×3 (05:09→20:07)
[2021-01-26 05:19] LABS: BUN/Creatinine Ratio 72 (6-26); Blood Urea Nitrogen 18 mg/dL (8-23); Calcium 9.8 mg/dL (8.6-10.3); Carbon Dioxide 37 mEq/L (23-29); Chloride 99 mEq/L (98-107); Glucose 122 mg/dL (70-105); Magnesium 1.4 mg/dL (1.6-2.6); Osmolality,Calculated 293 (280-300); Potassium 3.7 mEq/L (3.5-5.1); Sodium 140 mEq/L (136-145); eGFR For African Americans > 60 (> 60); eGFR For Non-African Americans > 60 (> 60)
[2021-01-26] MEDS: Insulin LISPRO 300 UNITS/3 ML VIAL SUBQ SCH ×4 (08:21→20:18)
[2021-01-26] MEDS: Pregabalin 50 MG CAPSULE PO SCH ×3 (08:24→20:07)
[2021-01-26] MEDS: Furosemide 40 MG TABLET PO SCH (08:25)
[2021-01-26] MEDS: Lactulose Oral Soln 20 GM/30 ML UDC PO SCH ×3 (08:25→20:07)
[2021-01-26] MEDS: Nystatin POWDER 30 GM BOTTLE TP SCH ×2 (08:25→15:44)
[2021-01-26] MEDS: Melatonin 3 MG TABLET PO SCH (20:07)
[2021-01-27] MEDS: Nystatin POWDER 30 GM BOTTLE TP SCH ×4 (01:13→22:21)
[2021-01-27 02:34] LABS: Mean Corpuscular HGB Conc 29.5 g/dL (31.6-35.5); Mean Corpuscular Volume 98.8 fL (83.0-100.0); Red Cell Distribution Width 17.9 % (11.5-14.5)
[2021-01-27 02:35] LABS: Basophils % 0.7 %; Eosinophils # 0.1 K/mcL (0.0-0.6); Eosinophils % 3.4 %; Hematocrit 33.6 % (35.3-44.9); Hemoglobin 9.9 g/dL (11.5-15.4); Immature Granulocytes % 0.3 % (0-4); Immature Platelets 8.2 % (1.1-6.1); Lymphocytes # 0.6 K/mcL (0.6-4.6); Lymphocytes % 19.3 %; Mean Corpuscular Hemoglobin 29.1 pg (28.0-33.3); Monocytes # 0.4 K/mcL (0.0-1.3); Monocytes % 14.5 %; Neutrophils # 1.8 K/mcL (1.6-8.9); Segmented Neutrophils % 61.8 %; White Blood Count 2.9 K/mcL (4.3-11.1)
[2021-01-27 02:39] LABS: VBG HCO3 40 mEq/L (21-27); VBG PCO2 75 mmHg (41-51); VBG PH 7.33 pH Units (7.32-7.42); VBG PO2 162 mmHg (25-50)
[2021-01-27 02:41] LABS: Platelet Count 72 K/mcL (140-400)
[2021-01-27 02:52] LABS: BUN/Creatinine Ratio 67 (6-26); Blood Urea Nitrogen 20 mg/dL (8-23); Calcium 10.1 mg/dL (8.6-10.3); Carbon Dioxide 39 mEq/L (23-29); Chloride 100 mEq/L (98-107); Glucose 134 mg/dL (70-105); Magnesium 1.4 mg/dL (1.6-2.6); Osmolality,Calculated 289 (280-300); Potassium 3.5 mEq/L (3.5-5.1); Sodium 137 mEq/L (136-145); eGFR For African Americans > 60 (> 60); eGFR For Non-African Americans > 60 (> 60)
[2021-01-27] MEDS: *HR* OxyCODONE Immed Rel 5 MG TABLET PO PRN ×2 (06:33→16:05)
[2021-01-27] MEDS: *HR* Heparin 5,000 UNIT/ML VIAL SQ SCH ×2 (06:34→22:25)
[2021-01-27] MEDS: Lactulose Oral Soln 20 GM/30 ML UDC PO SCH ×3 (07:59→22:27)
[2021-01-27] MEDS: Pregabalin 50 MG CAPSULE PO SCH ×3 (07:59→22:21)
[2021-01-27] MEDS: Furosemide 40 MG TABLET PO SCH (08:00)
[2021-01-27] MEDS: Insulin LISPRO 300 UNITS/3 ML VIAL SUBQ SCH ×4 (08:00→22:26)
[2021-01-27] MEDS: atenoloL 50 MG TABLET PO SCH (10:56)
[2021-01-27] MEDS: Melatonin 3 MG TABLET PO SCH (22:21)
[2021-01-28] MEDS: *HR* Heparin 5,000 UNIT/ML VIAL SQ SCH ×2 (04:58→17:00)
[2021-01-28 05:29] LABS: VBG HCO3 42 mEq/L (21-27); VBG PCO2 80 mmHg (41-51); VBG PH 7.33 pH Units (7.32-7.42); VBG PO2 127 mmHg (25-50)
[2021-01-28 05:34] LABS: Immature Granulocytes % 0.4 % (0-4)
[2021-01-28 05:36] LABS: Basophils % 0.9 %; Eosinophils # 0.1 K/mcL (0.0-0.6); Hematocrit 33.2 % (35.3-44.9); Hemoglobin 9.8 g/dL (11.5-15.4); Immature Platelets 9.4 % (1.1-6.1); Lymphocytes # 0.4 K/mcL (0.6-4.6); Lymphocytes % 17.7 %; Mean Corpuscular HGB Conc 29.5 g/dL (31.6-35.5); Mean Corpuscular Hemoglobin 29.3 pg (28.0-33.3); Mean Corpuscular Volume 99.1 fL (83.0-100.0); Monocytes # 0.3 K/mcL (0.0-1.3); Monocytes % 12.5 %; Neutrophils # 1.5 K/mcL (1.6-8.9); Red Blood Count 3.35 M/mcL (3.82-4.97); Red Cell Distribution Width 17.7 % (11.5-14.5); Segmented Neutrophils % 65.5 %; White Blood Count 2.3 K/mcL (4.3-11.1)
[2021-01-28 05:37] LABS: Platelet Count 65 K/mcL (140-400)
[2021-01-28 05:50] LABS: BUN/Creatinine Ratio 64 (6-26); Blood Urea Nitrogen 18 mg/dL (8-23); Calcium 10.4 mg/dL (8.6-10.3); Carbon Dioxide 41 mEq/L (23-29); Chloride 100 mEq/L (98-107); Glucose 142 mg/dL (70-105); Magnesium 1.3 mg/dL (1.6-2.6); Osmolality,Calculated 296 (280-300); Potassium 3.6 mEq/L (3.5-5.1); Sodium 141 mEq/L (136-145); eGFR For African Americans > 60 (> 60); eGFR For Non-African Americans > 60 (> 60)
[2021-01-28] MEDS: Insulin LISPRO 300 UNITS/3 ML VIAL SUBQ SCH ×4 (09:49→20:47)
[2021-01-28] MEDS: atenoloL 50 MG TABLET PO SCH (09:50)
[2021-01-28] MEDS: Pregabalin 50 MG CAPSULE PO SCH ×3 (09:51→20:46)
[2021-01-28] MEDS: Furosemide 40 MG TABLET PO SCH (09:51)
[2021-01-28] MEDS: Lactulose Oral Soln 20 GM/30 ML UDC PO SCH ×3 (09:52→20:46)
[2021-01-28] MEDS: *HR* OxyCODONE Immed Rel 5 MG TABLET PO PRN ×2 (09:58→15:38)
[2021-01-28] MEDS: Nystatin POWDER 30 GM BOTTLE TP SCH ×3 (13:34→20:46)
[2021-01-28] MEDS: Melatonin 3 MG TABLET PO SCH (20:46)
[2021-01-29] MEDS: *HR* OxyCODONE Immed Rel 5 MG TABLET PO PRN ×3 (04:16→21:39)
[2021-01-29] MEDS: *HR* Heparin 5,000 UNIT/ML VIAL SQ SCH ×2 (05:20→16:36)
[2021-01-29 06:37] LABS: Hemoglobin 10.3 g/dL (11.5-15.4)
[2021-01-29 06:39] LABS: Basophils % 0.3 %; Eosinophils # 0.1 K/mcL (0.0-0.6); Hematocrit 35.3 % (35.3-44.9); Immature Granulocytes % 0.7 % (0-4); Immature Platelets 10.4 % (1.1-6.1); Lymphocytes # 0.5 K/mcL (0.6-4.6); Lymphocytes % 14.9 %; Mean Corpuscular HGB Conc 29.2 g/dL (31.6-35.5); Mean Corpuscular Hemoglobin 29.3 pg (28.0-33.3); Mean Corpuscular Volume 100.6 fL (83.0-100.0); Mean Platelet Volume 12.6 fL (9.4-12.4); Monocytes # 0.4 K/mcL (0.0-1.3); Monocytes % 12.2 %; Neutrophils # 2.1 K/mcL (1.6-8.9); Red Blood Count 3.51 M/mcL (3.82-4.97); Red Cell Distribution Width 17.7 % (11.5-14.5); Segmented Neutrophils % 68.9 %
[2021-01-29 06:45] LABS: Platelet Count 69 K/mcL (140-400)
[2021-01-29 06:48] LABS: VBG HCO3 43 mEq/L (21-27); VBG PCO2 81 mmHg (41-51); VBG PH 7.34 pH Units (7.32-7.42); VBG PO2 55 mmHg (25-50)
[2021-01-29 06:55] LABS: BUN/Creatinine Ratio 56 (6-26); Blood Urea Nitrogen 19 mg/dL (8-23); Calcium 10.4 mg/dL (8.6-10.3); Carbon Dioxide 43 mEq/L (23-29); Chloride 97 mEq/L (98-107); Glucose 191 mg/dL (70-105); Magnesium 1.3 mg/dL (1.6-2.6); Osmolality,Calculated 297 (280-300); Potassium 3.4 mEq/L (3.5-5.1); Sodium 140 mEq/L (136-145); eGFR For African Americans > 60 (> 60); eGFR For Non-African Americans > 60 (> 60)
[2021-01-29 09:24] LABS: VBG HCO3 42 mEq/L (21-27); VBG PCO2 69 mmHg (41-51); VBG PH 7.39 pH Units (7.32-7.42); VBG PO2 170 mmHg (25-50)
[2021-01-29] MEDS: atenoloL 50 MG TABLET PO SCH (09:59)
[2021-01-29] MEDS: Furosemide 40 MG TABLET PO SCH (10:08)
[2021-01-29] MEDS: Pregabalin 50 MG CAPSULE PO SCH ×3 (10:08→21:39)
[2021-01-29] MEDS: Lactulose Oral Soln 20 GM/30 ML UDC PO SCH ×3 (10:08→21:40)
[2021-01-29] MEDS: Nystatin POWDER 30 GM BOTTLE TP SCH ×3 (10:09→21:40)
[2021-01-29] MEDS: Insulin LISPRO 300 UNITS/3 ML VIAL SUBQ SCH ×4 (10:15→20:47)
[2021-01-29] MEDS ORDERED: Potassium Chloride Elixir 20 MEQ/15 ML UDC PO ONE (13:04)
[2021-01-29] MEDS: Melatonin 3 MG TABLET PO SCH (21:39)
[2021-01-30 04:13] LABS: ABG Base Excess 12 mEq/L (-2 to 3); ABG HCO3 40 mEq/L (21-27); ABG Oxygen Saturation 94 % (95-98); ABG PCO2 67 mmHg (35-45); ABG PH 7.38 pH Units (7.32-7.45); ABG PO2 74 mmHg (85-104); ABG TCO2 42 mEq/L (20-26); Blood Gas Modality BiLevel
[2021-01-30] MEDS: *HR* Heparin 5,000 UNIT/ML VIAL SQ SCH ×2 (06:38→17:48)
[2021-01-30] MEDS: *HR* OxyCODONE Immed Rel 5 MG TABLET PO PRN ×2 (06:44→21:18)
[2021-01-30 07:21] LABS: BUN/Creatinine Ratio 56 (6-26); Blood Urea Nitrogen 18 mg/dL (8-23); Calcium 10.3 mg/dL (8.6-10.3); Carbon Dioxide 44 mEq/L (23-29); Chloride 97 mEq/L (98-107); Glucose 147 mg/dL (70-105); Magnesium 1.4 mg/dL (1.6-2.6); Osmolality,Calculated 295 (280-300); Potassium 3.5 mEq/L (3.5-5.1); Sodium 140 mEq/L (136-145); eGFR For African Americans > 60 (> 60); eGFR For Non-African Americans > 60 (> 60)
[2021-01-30] MEDS: Insulin LISPRO 300 UNITS/3 ML VIAL SUBQ SCH ×4 (10:25→21:14)
[2021-01-30] MEDS: Pregabalin 50 MG CAPSULE PO SCH ×3 (10:25→21:10)
[2021-01-30] MEDS: Lactulose Oral Soln 20 GM/30 ML UDC PO SCH ×3 (10:26→21:10)
[2021-01-30] MEDS: atenoloL 50 MG TABLET PO SCH (10:26)
[2021-01-30] MEDS: Furosemide 40 MG TABLET PO SCH (10:27)
[2021-01-30] MEDS: Nystatin POWDER 30 GM BOTTLE TP SCH ×3 (10:27→21:11)
[2021-01-30] MEDS: Melatonin 3 MG TABLET PO SCH (21:08)
[2021-01-31] MEDS: *HR* Heparin 5,000 UNIT/ML VIAL SQ SCH (05:05)
[2021-01-31] MEDS: *HR* OxyCODONE Immed Rel 5 MG TABLET PO PRN (05:36)
[2021-01-31 07:09] LABS: BUN/Creatinine Ratio 62 (6-26); Blood Urea Nitrogen 21 mg/dL (8-23); Calcium 10.1 mg/dL (8.6-10.3); Carbon Dioxide 43 mEq/L (23-29); Chloride 95 mEq/L (98-107); Glucose 146 mg/dL (70-105); Magnesium 1.6 mg/dL (1.6-2.6); Osmolality,Calculated 292 (280-300); Potassium 3.8 mEq/L (3.5-5.1); Sodium 138 mEq/L (136-145); eGFR For African Americans > 60 (> 60); eGFR For Non-African Americans > 60 (> 60)
[2021-01-31] MEDS: atenoloL 50 MG TABLET PO SCH (08:40)
[2021-01-31] MEDS: Furosemide 40 MG TABLET PO SCH (08:40)
[2021-01-31] MEDS: Pregabalin 50 MG CAPSULE PO SCH (08:40)
[2021-01-31] MEDS: Lactulose Oral Soln 20 GM/30 ML UDC PO SCH (08:44)
[2021-01-31] MEDS: Nystatin POWDER 30 GM BOTTLE TP SCH (08:46)
[2021-01-31] MEDS: Insulin LISPRO 300 UNITS/3 ML VIAL SUBQ SCH ×2 (08:48→11:48)
[2021-01-31 10:40] VITALS: BP 108/51
== END 2021-01-31 15:10 | disposition home health service (06) | DRG 441 ==
LOC: 3BNU 18:34 → EMEROOARM 18:34 → SUATTDRO 01-18 00:04 → 3BNU 01-18 00:35 → 3ANU 01-18 14:44 → SUATTDRO 01-19 13:42 → 3ANU 01-21 00:14
PROVIDERS: ADMIT Student in an Organized Health Care Education/Training Program; ATTEND Internal Medicine

== ENCOUNTER 2021-02-18 16:26 | Inpatient (IN) ==
[2021-02-18 17:27] LABS: INR 1.3; Prothrombin Time 14.4 Seconds (9.4-12.1)
[2021-02-18 17:29] LABS: Activated Partial Thrombo Time 29.6 Seconds (26.0-36.0)
[2021-02-18 17:40] LABS: Alanine Aminotransferase 21 Units/L (7-52); Albumin 2.8 g/dL (3.5-5.7); Albumin/Globulin Ratio 0.7 (1.1-2.2); Alkaline Phosphatase 137 Units/L (34-104); Aspartate Amino Transferase 40 Units/L (13-39); BUN/Creatinine Ratio 42 (6-26); Bilirubin,Indirect 1.1 mg/dL (0.0-1.0); Bilirubin,Total 2.1 mg/dL (0.3-1.0); Blood Urea Nitrogen 18 mg/dL (8-23); Calcium 9.8 mg/dL (8.6-10.3); Carbon Dioxide 27 mEq/L (23-29); Chloride 104 mEq/L (98-107); Creatine Kinase 15 Units/L (30-223); Ethanol < 10 mg/dL (Less than 10); Globulin 3.8 g/dL (2.4-3.5); Glucose 119 mg/dL (70-105); Osmolality,Calculated 291 (280-300); Potassium 4.1 mEq/L (3.5-5.1); Sodium 139 mEq/L (136-145); Total Protein 6.6 g/dL (6.4-8.9); Troponin I < 0.03 ng/mL (< 0.04); eGFR For African Americans > 60 (> 60); eGFR For Non-African Americans > 60 (> 60)
[2021-02-18] MEDS ORDERED: *HR* HYDROcodone/Acet 7.5/325 mg TABLET PO ONE (18:15)
[2021-02-18 19:05] LABS: Bilirubin,Urine Negative (Negative); Blood,Urine Moderate (Negative); Clarity,Urine Clear (Clear); Color,Urine Yellow (Yellow); Glucose,Urine (UA) Normal (Normal); Hyaline Casts,Urine Few per lpf (None Seen); Ketones,Urine 10 mg/dL (Negative); Leukocyte Esterase,Urine Small (Negative); Mucus,Urine Few per lpf (None-Few); Nitrite,Urine Negative (Negative); Protein,Urine Trace mg/dL (Neg-Trace); RBC,Urine 50-100 per hpf (0-3); Specific Gravity,Urine 1.016 (1.010-1.025); Squamous Epithelial Cell,Urine Few per hpf (None-Few)
[2021-02-18 19:27] LABS: Immature Granulocytes % 0.8 % (0-4)
[2021-02-18 19:29] LABS: Basophils % 0.8 %; Eosinophils # 0.1 K/mcL (0.0-0.6); Eosinophils % 2.6 %; Hematocrit 37.7 % (35.3-44.9); Hemoglobin 11.5 g/dL (11.5-15.4); Immature Platelets 7.7 % (1.1-6.1); Lymphocytes # 0.6 K/mcL (0.6-4.6); Lymphocytes % 14.9 %; Mean Corpuscular HGB Conc 30.5 g/dL (31.6-35.5); Mean Corpuscular Hemoglobin 29.1 pg (28.0-33.3); Mean Corpuscular Volume 95.4 fL (83.0-100.0); Mean Platelet Volume 12.4 fL (9.4-12.4); Monocytes # 0.4 K/mcL (0.0-1.3); Monocytes % 9.5 %; Neutrophils # 2.8 K/mcL (1.6-8.9); Platelet Count 80 K/mcL (140-400); Red Blood Count 3.95 M/mcL (3.82-4.97); Red Cell Distribution Width 17.7 % (11.5-14.5); Segmented Neutrophils % 71.4 %; White Blood Count 3.9 K/mcL (4.3-11.1)
[2021-02-18 19:41] LABS: Amphetamine Screen,Urine Negative ng/mL (Cutoff=1000); Barbiturate Screen,Urine Negative ng/mL (Cutoff=200); Benzodiazepines Screen,Urine Negative ng/mL (Cutoff=200); Cannabinoid Screen,Urine Negative ng/mL (Cutoff = 50); Cocaine Screen,Urine Negative ng/mL (Cutoff= 300); Opiate Screen,Urine Negative ng/mL (Cutoff=300); Phencyclidine Screen,Urine Negative ng/mL (Cutoff=25)
[2021-02-18] MEDS ORDERED: Naloxone 0.4 MG/ML INJ IVP PRN (22:01)
[2021-02-18] MEDS ORDERED: Ondansetron 4 MG/2 ML VIAL IVP PRN (22:01)
[2021-02-18] MEDS: *HR* Heparin 5,000 UNIT/ML VIAL SQ SCH (23:13)
[2021-02-19] MEDS ORDERED: 0.9 % Sodium Chloride 1,000 ML IVC SCH (00:15)
[2021-02-19] MEDS ORDERED: *HR* Dextrose 50 % in Water (Vial) 50 ML VIAL IVP PRN (00:20)
[2021-02-19] MEDS ORDERED: D5% in Water 1,000 ML IVC PRN (00:20)
[2021-02-19] MEDS ORDERED: Dextrose Gel 15 GM/37.5 ML TUBE PO PRN ×2 (00:20)
[2021-02-19] MEDS: Lactulose Oral Soln 20 GM/30 ML UDC PO SCH ×5 (00:50→20:44)
[2021-02-19] MEDS ORDERED: *HR* HYDROcodone/Acet 7.5/325 mg TABLET PO PRN (01:02)
[2021-02-19 01:13] LABS: Immature Granulocytes % 0.5 % (0-4); Immature Platelets 7.8 % (1.1-6.1)
[2021-02-19 01:14] LABS: Basophils % 0.3 %; Eosinophils # 0.1 K/mcL (0.0-0.6); Eosinophils % 2.7 %; Hematocrit 37.2 % (35.3-44.9); Lymphocytes # 0.6 K/mcL (0.6-4.6); Lymphocytes % 15.7 %; Mean Corpuscular HGB Conc 32.3 g/dL (31.6-35.5); Mean Corpuscular Hemoglobin 30.3 pg (28.0-33.3); Mean Corpuscular Volume 93.9 fL (83.0-100.0); Monocytes # 0.3 K/mcL (0.0-1.3); Monocytes % 9.2 %; Red Blood Count 3.96 M/mcL (3.82-4.97); Red Cell Distribution Width 17.6 % (11.5-14.5); Segmented Neutrophils % 71.6 %; White Blood Count 3.7 K/mcL (4.3-11.1)
[2021-02-19 01:16] LABS: Neutrophils # 2.7 K/mcL (1.6-8.9); Platelet Count 75 K/mcL (140-400)
[2021-02-19] MEDS ORDERED: Melatonin 3 MG TABLET PO PRN (01:18)
[2021-02-19 01:20] LABS: BUN/Creatinine Ratio 37 (6-26); Blood Urea Nitrogen 17 mg/dL (8-23); Calcium 9.6 mg/dL (8.6-10.3); Carbon Dioxide 27 mEq/L (23-29); Chloride 104 mEq/L (98-107); Glucose 226 mg/dL (70-105); Magnesium 1.2 mg/dL (1.6-2.6); Osmolality,Calculated 295 (280-300); Phosphorous 2.8 mg/dL (2.7-4.5); Potassium 3.9 mEq/L (3.5-5.1); Sodium 138 mEq/L (136-145); eGFR For African Americans > 60 (> 60); eGFR For Non-African Americans > 60 (> 60)
[2021-02-19 01:21] LABS: Albumin 2.8 g/dL (3.5-5.7); Albumin/Globulin Ratio 0.7 (1.1-2.2); Bilirubin,Direct 0.8 mg/dL (0.0-0.2); Bilirubin,Total 1.8 mg/dL (0.3-1.0); Globulin 3.8 g/dL (2.4-3.5); Total Protein 6.6 g/dL (6.4-8.9)
[2021-02-19 01:22] LABS: INR 1.3
[2021-02-19] MEDS: *HR* Heparin 5,000 UNIT/ML VIAL SQ SCH ×3 (05:10→20:50)
[2021-02-19] MEDS: Furosemide 40 MG TABLET PO SCH (08:11)
[2021-02-19] MEDS: Mirabegron [Myrbetriq] 50 MG PO SCH (08:11)
[2021-02-19] MEDS ORDERED: atenoloL 25 MG TABLET PO SCH (09:00)
[2021-02-19 13:07] LABS: RBC,Peritoneal Fluid < 2000 RBC/mcL
[2021-02-19 13:12] LABS: Appearance of Peritoneal Fl CLEAR (Clear); Total Protein,Peritoneal Fluid 2.5 g/dL
[2021-02-19] MEDS ORDERED: tiZANidine 4 MG TABLET PO PRN (13:54)
[2021-02-19 14:11] LABS: Basophils,Peritoneal Fluid 0 %; Eosinophils,Peritoneal Fluid 0 %
[2021-02-19] MEDS: Pregabalin 50 MG CAPSULE PO SCH ×2 (14:30→20:45)
[2021-02-19] MEDS: Ibuprofen 800 MG TABLET PO SCH ×2 (15:09→20:44)
[2021-02-19] MEDS: Insulin LISPRO 300 UNITS/3 ML VIAL SUBQ SCH (16:58)
[2021-02-19] MEDS: Insulin DETEMIR 100 UNIT/ML X5UNITS SUBQ SCH (20:46)
[2021-02-19] MEDS ORDERED: Insulin LISPRO 300 UNITS/3 ML VIAL SUBQ SCH (21:00)
[2021-02-20] MEDS: *HR* Heparin 5,000 UNIT/ML VIAL SQ SCH ×2 (05:59→14:28)
[2021-02-20 07:10] LABS: Basophils % 0.5 %; Mean Corpuscular Volume 94.5 fL (83.0-100.0); Red Cell Distribution Width 17.4 % (11.5-14.5)
[2021-02-20 07:12] LABS: Eosinophils # 0.1 K/mcL (0.0-0.6); Eosinophils % 2.6 %; Hematocrit 34.2 % (35.3-44.9); Hemoglobin 10.6 g/dL (11.5-15.4); Immature Granulocytes % 0.2 % (0-4); Immature Platelets 9.8 % (1.1-6.1); Lymphocytes # 0.7 K/mcL (0.6-4.6); Lymphocytes % 16.5 %; Mean Corpuscular Hemoglobin 29.3 pg (28.0-33.3); Mean Platelet Volume 12.8 fL (9.4-12.4); Monocytes # 0.4 K/mcL (0.0-1.3); Monocytes % 8.7 %; Red Blood Count 3.62 M/mcL (3.82-4.97); Segmented Neutrophils % 71.5 %; White Blood Count 4.2 K/mcL (4.3-11.1)
[2021-02-20 07:19] LABS: Platelet Count 80 K/mcL (140-400)
[2021-02-20 07:26] LABS: Alanine Aminotransferase 24 Units/L (7-52); Albumin 2.6 g/dL (3.5-5.7); Albumin/Globulin Ratio 0.7 (1.1-2.2); Alkaline Phosphatase 139 Units/L (34-104); Aspartate Amino Transferase 46 Units/L (13-39); BUN/Creatinine Ratio 27 (6-26); Bilirubin,Total 1.5 mg/dL (0.3-1.0); Blood Urea Nitrogen 14 mg/dL (8-23); Calcium 9.3 mg/dL (8.6-10.3); Carbon Dioxide 30 mEq/L (23-29); Chloride 104 mEq/L (98-107); Globulin 3.5 g/dL (2.4-3.5); Glucose 89 mg/dL (70-105); Magnesium 1.7 mg/dL (1.6-2.6); Osmolality,Calculated 288 (280-300); Phosphorous 2.3 mg/dL (2.7-4.5); Potassium 3.7 mEq/L (3.5-5.1); Sodium 139 mEq/L (136-145); Total Protein 6.1 g/dL (6.4-8.9); eGFR For African Americans > 60 (> 60); eGFR For Non-African Americans > 60 (> 60)
[2021-02-20] MEDS: Insulin LISPRO 300 UNITS/3 ML VIAL SUBQ SCH ×3 (07:43→16:59)
[2021-02-20] MEDS: Ibuprofen 800 MG TABLET PO SCH ×2 (08:24→15:38)
[2021-02-20] MEDS: Pregabalin 50 MG CAPSULE PO SCH ×2 (08:24→15:38)
[2021-02-20] MEDS: Furosemide 40 MG TABLET PO SCH (08:25)
[2021-02-20] MEDS: Mirabegron [Myrbetriq] 50 MG PO SCH (08:25)
[2021-02-20] MEDS: Lactulose Oral Soln 20 GM/30 ML UDC PO SCH ×2 (08:26→15:37)
[2021-02-20] MEDS ORDERED: atenoloL 50 MG TABLET PO SCH (09:00)
[2021-02-20] MEDS: Insulin DETEMIR 100 UNIT/ML X5UNITS SUBQ SCH (09:44)
[2021-02-20 19:59] VITALS: BP 95/55; PULSE 68; TEMP 98; O2SAT 96
[2021-02-21 05:35] LABS: Fluid Source for Albumin ASCITES
== END 2021-02-20 21:45 | disposition home health service (06) | DRG 441 ==
LOC: EMEROOARM 16:26 → 3BNU 16:26 → SUATTDRO 20:20 → 3BNU 21:43
PROVIDERS: ADMIT Student in an Organized Health Care Education/Training Program; ATTEND Internal Medicine

== ENCOUNTER 2021-04-06 22:07 | Inpatient (IN) ==
[2021-04-06 23:55] LABS: INR 1.3
[2021-04-07 00:05] LABS: Basophils % 0.7 %; Immature Granulocytes % 0.3 % (0-4); Mean Corpuscular Hemoglobin 30.2 pg (28.0-33.3); White Blood Count 2.9 K/mcL (4.3-11.1)
[2021-04-07 00:07] LABS: Alanine Aminotransferase 21 Units/L (7-52); Albumin 3.5 g/dL (3.5-5.7); Albumin/Globulin Ratio 0.8 (1.1-2.2); Alkaline Phosphatase 97 Units/L (34-104); Aspartate Amino Transferase 38 Units/L (13-39); BUN/Creatinine Ratio 39 (6-26); Bilirubin,Direct 1.2 mg/dL (0.0-0.2); Bilirubin,Indirect 1.1 mg/dL (0.0-1.0); Bilirubin,Total 2.3 mg/dL (0.3-1.0); Blood Urea Nitrogen 24 mg/dL (8-23); Calcium 10.7 mg/dL (8.6-10.3); Carbon Dioxide 26 mEq/L (23-29); Chloride 98 mEq/L (98-107); Eosinophils % 0.7 %; Globulin 4.6 g/dL (2.4-3.5); Glucose 151 mg/dL (70-105); Hematocrit 38.6 % (35.3-44.9); Hemoglobin 12.6 g/dL (11.5-15.4); Immature Platelets 13.6 % (1.1-6.1); Lymphocytes # 0.6 K/mcL (0.6-4.6); Lymphocytes % 21.1 %; Mean Corpuscular HGB Conc 32.6 g/dL (31.6-35.5); Mean Corpuscular Volume 92.6 fL (83.0-100.0); Mean Platelet Volume 13.1 fL (9.4-12.4); Monocytes % 15.3 %; Neutrophils # 1.8 K/mcL (1.6-8.9); Osmolality,Calculated 287 (280-300); Red Blood Count 4.17 M/mcL (3.82-4.97); Segmented Neutrophils % 61.9 %; Sodium 135 mEq/L (136-145); Total Protein 8.1 g/dL (6.4-8.9); Troponin I < 0.03 ng/mL (< 0.04); eGFR For African Americans > 60 (> 60); eGFR For Non-African Americans > 60 (> 60)
[2021-04-07 00:10] LABS: Monocytes # 0.4 K/mcL (0.0-1.3); Platelet Count 67 K/mcL (140-400)
[2021-04-07 01:03] LABS: Amorphous Sediment,Urine Few per hpf (None-Few); Bacteria,Urine Few per hpf (None-Few); Bilirubin,Urine Small (Negative); Blood,Urine Large (Negative); Clarity,Urine Turbid (Clear); Color,Urine Yellow (Yellow); Glucose,Urine (UA) Normal (Normal); Ketones,Urine 10 mg/dL (Negative); Leukocyte Esterase,Urine Large (Negative); Mucus,Urine Few per lpf (None-Few); Nitrite,Urine Negative (Negative); Protein,Urine 50 mg/dL (Neg-Trace); RBC,Urine TNTC per hpf (0-3); Renal Epithelial Cells,Urine Few per hpf (None-Few); Specific Gravity,Urine 1.023 (1.010-1.025); Squamous Epithelial Cell,Urine Moderate per hpf (None-Few); Transitional Epi Cells,Urine Few per hpf (None-Few); Urobilinogen,Urine >=8.0 mg/dL (Normal); WBC,Urine 50-100 per hpf (0-3)
[2021-04-07] MEDS ORDERED: Cefepime HCl 1,000 MG in 0.9 % Sodium Chloride Mini Bag 100 ML IVPB ONE (03:03)
[2021-04-07] MEDS ORDERED: metroNIDAZOLE 500 MG TABLET PO ONE (03:03)
[2021-04-07] MEDS ORDERED: 0.9 % Sodium Chloride 1,000 ML IVC ONE (03:03)
[2021-04-07] MEDS ORDERED: Vancomycin 2,000 MG/520 ML IV.SOLN IVPB ONE ×2 (03:03→17:00)
[2021-04-07 04:40] LABS: Adenovirus Not Detected (Not Detect); Coronavirus 229E Not Detected (Not Detect); Coronavirus HKU1 Not Detected (Not Detect); Coronavirus NL63 Not Detected (Not Detect); Coronavirus OC43 Not Detected (Not Detect)
[2021-04-07 04:43] LABS: Bordetella Pertussis Not Detected (Not Detect); Chlamydophila pneumoniae Not Detected (Not Detect); Human Metapneumovirus Not Detected (Not Detect); Human Rhinovirus/Enterovirus Not Detected (Not Detect); Influenza A Subtype 2009 H1 Not Detected (Not Detect); Influenza B Not Detected (Not Detect); Mycoplasma pneumoniae Not Detected (Not Detect); Parainfluenza Virus 1 Not Detected (Not Detect); Parainfluenza Virus 2 Not Detected (Not Detect); Parainfluenza Virus 3 Not Detected (Not Detect); Parainfluenza Virus 4 Not Detected (Not Detect); Respiratory Syncytial Virus Not Detected (Not Detect); SARS-CoV-2 DETECTED (Not Detect)
[2021-04-07] MEDS ORDERED: Naloxone 0.4 MG/ML INJ IVP PRN (05:26)
[2021-04-07] MEDS ORDERED: Ondansetron 4 MG/2 ML VIAL IVP PRN (05:26)
[2021-04-07] MEDS ORDERED: D5% in Water 1,000 ML IVC PRN (05:55)
[2021-04-07] MEDS ORDERED: *HR* Dextrose 50 % in Water (Vial) 50 ML VIAL IVP PRN (05:55)
[2021-04-07] MEDS ORDERED: Dextrose Gel 15 GM/37.5 ML TUBE PO PRN ×2 (05:55)
[2021-04-07] MEDS ORDERED: Azithromycin 500 MG in 0.9 % Sodium Chloride 250 ML IVPB SCH (06:00)
[2021-04-07 06:17] LABS: VBG HCO3 26 mEq/L (21-27); VBG PCO2 42 mmHg (41-51); VBG PH 7.41 pH Units (7.32-7.42); VBG PO2 45 mmHg (25-50)
[2021-04-07] MEDS: *HR* Enoxaparin 40 MG/0.4 ML SYRINGE SQ SCH ×2 (06:33→09:12)
[2021-04-07 06:36] LABS: Lactate Dehydrogenase 138 Units/L (140-271)
[2021-04-07 06:41] LABS: Fibrinogen 247 mg/dL (169-393)
[2021-04-07 06:59] LABS: D-Dimer 932 ng/mLFEU (0-500)
[2021-04-07] MEDS ORDERED: Vancomycin 1,750 MG in 0.9 % Sodium Chloride 250 ML IVPB SCH (07:00)
[2021-04-07 07:24] LABS: Ferritin 120 ng/mL (10-120)
[2021-04-07] MEDS ORDERED: Cefepime HCl 2,000 MG in Water for inj. (sterile) 20 ML IVP SCH (08:00)
[2021-04-07] MEDS: Insulin LISPRO 300 UNITS/3 ML VIAL SUBQ SCH ×3 (08:36→18:37)
[2021-04-07] MEDS ORDERED: cefTRIAXone 1,000 MG in Water for inj. (sterile) 10 ML IVP SCH (09:00)
[2021-04-07] MEDS: Lactulose Oral Soln 20 GM/30 ML UDC PO SCH ×2 (09:13→20:05)
[2021-04-07 09:19] LABS: C-Reactive Protein 33 mg/L (Less than 10)
[2021-04-07] MEDS: cefTRIAXone 1,000 MG in Water for inj. (sterile) 10 ML IVP SCH (12:46)
[2021-04-07] MEDS: Pregabalin 50 MG CAPSULE PO SCH (20:05)
[2021-04-07] MEDS ORDERED: Melatonin 3 MG TABLET PO ONE (22:06)
[2021-04-08] MEDS: Insulin LISPRO 300 UNITS/3 ML VIAL SUBQ SCH ×4 (01:04→18:04)
[2021-04-08] MEDS ORDERED: Vancomycin 1,250 MG/262.5 ML IV.SOLN IVPB SCH (05:00)
[2021-04-08] MEDS: *HR* Enoxaparin 40 MG/0.4 ML SYRINGE SQ SCH (05:39)
[2021-04-08 07:33] LABS: mecA Methicillin-Resist Gene DETECTED (Not Detect)
[2021-04-08 07:34] LABS: Acinetobacter baumannii by PCR Not Detected (Not Detect); Candida albicans by PCR Not Detected (Not Detect); Candida glabrata by PCR Not Detected (Not Detect); Candida krusei by PCR Not Detected (Not Detect); Candida parapsilosis by PCR Not Detected (Not Detect); Candida tropicalis by PCR Not Detected (Not Detect); Enterobacter cloacae Cmplx PCR Not Detected (Not Detect); Enterobacteriaceae by PCR Not Detected (Not Detect); Enterococcus by PCR Not Detected (Not Detect); Escherichia coli by PCR Not Detected (Not Detect); Klebsiella oxytoca by PCR Not Detected (Not Detect); Klebsiella pneumoniae by PCR Not Detected (Not Detect); Proteus by PCR Not Detected (Not Detect); Pseudomonas aeruginosa by PCR Not Detected (Not Detect); Serratia marcescens by PCR Not Detected (Not Detect); Staphylococcus aureus by PCR Not Detected (Not Detect); Staphylococcus by PCR DETECTED (Not Detect); Streptococcus agalactiae(B)PCR Not Detected (Not Detect); Streptococcus by PCR Not Detected (Not Detect); Streptococcus pneumoniae PCR Not Detected (Not Detect); Streptococcus pyogenes (A) PCR Not Detected (Not Detect)
[2021-04-08 07:43] LABS: Basophils % 0.4 %; Eosinophils % 0.7 %; Immature Granulocytes % 0.7 % (0-4); Mean Corpuscular Volume 91.8 fL (83.0-100.0)
[2021-04-08 07:44] LABS: Hematocrit 34.7 % (35.3-44.9); Hemoglobin 11.3 g/dL (11.5-15.4); Lymphocytes # 0.5 K/mcL (0.6-4.6); Lymphocytes % 17.2 %; Mean Corpuscular HGB Conc 32.6 g/dL (31.6-35.5); Mean Corpuscular Hemoglobin 29.9 pg (28.0-33.3); Mean Platelet Volume 12.5 fL (9.4-12.4); Monocytes # 0.4 K/mcL (0.0-1.3); Monocytes % 13.3 %; Neutrophils # 1.9 K/mcL (1.6-8.9); Platelet Count 61 K/mcL (140-400); Red Blood Count 3.78 M/mcL (3.82-4.97); Red Cell Distribution Width 16.9 % (11.5-14.5); Segmented Neutrophils % 67.7 %; White Blood Count 2.8 K/mcL (4.3-11.1)
[2021-04-08 07:54] LABS: INR 1.4; Prothrombin Time 15.6 Seconds (9.4-12.1)
[2021-04-08 08:05] LABS: BUN/Creatinine Ratio 40 (6-26); Blood Urea Nitrogen 21 mg/dL (8-23); Calcium 10.1 mg/dL (8.6-10.3); Carbon Dioxide 22 mEq/L (23-29); Chloride 103 mEq/L (98-107); Glucose 109 mg/dL (70-105); Magnesium 1.2 mg/dL (1.6-2.6); Osmolality,Calculated 286 (280-300); Phosphorous 1.9 mg/dL (2.7-4.5); Potassium 3.7 mEq/L (3.5-5.1); Sodium 136 mEq/L (136-145); eGFR For African Americans > 60 (> 60); eGFR For Non-African Americans > 60 (> 60)
[2021-04-08] MEDS: *HR* FentaNYL PATCH 12 MCG PATCH TD SCH (09:19)
[2021-04-08] MEDS: Pregabalin 50 MG CAPSULE PO SCH ×3 (09:19→21:43)
[2021-04-08] MEDS: Lactulose Oral Soln 20 GM/30 ML UDC PO SCH ×2 (09:20→21:32)
[2021-04-08] MEDS: atenoloL 50 MG TABLET PO SCH (09:21)
[2021-04-08] MEDS: Furosemide 40 MG TABLET PO SCH (09:21)
[2021-04-08] MEDS ORDERED: Potassium Phosphate 44 MEQ in 0.9 % Sodium Chloride 250 ML IVPB ONE (12:37)
[2021-04-08] MEDS: cefTRIAXone 1,000 MG in Water for inj. (sterile) 10 ML IVP SCH (14:08)
[2021-04-08] MEDS: *HR* OxyCODONE/APAP 5/325 TABLET PO PRN (21:33)
[2021-04-09] MEDS: Insulin LISPRO 300 UNITS/3 ML VIAL SUBQ SCH ×4 (00:01→18:11)
[2021-04-09] MEDS ORDERED: *HR* FentaNYL PATCH 12 MCG PATCH TD SCH (05:00)
[2021-04-09] MEDS: *HR* Enoxaparin 40 MG/0.4 ML SYRINGE SQ SCH (05:08)
[2021-04-09 06:17] LABS: Hematocrit 32.2 % (35.3-44.9); Hemoglobin 10.6 g/dL (11.5-15.4); Immature Platelets 9.4 % (1.1-6.1); Mean Corpuscular HGB Conc 32.9 g/dL (31.6-35.5); Mean Corpuscular Hemoglobin 30.6 pg (28.0-33.3); Mean Corpuscular Volume 93.1 fL (83.0-100.0); Mean Platelet Volume 12.4 fL (9.4-12.4); Red Blood Count 3.46 M/mcL (3.82-4.97); Red Cell Distribution Width 16.8 % (11.5-14.5); White Blood Count 2.8 K/mcL (4.3-11.1)
[2021-04-09 08:29] LABS: Alanine Aminotransferase 16 Units/L (7-52); Albumin/Globulin Ratio 0.9 (1.1-2.2); Alkaline Phosphatase 72 Units/L (34-104); Aspartate Amino Transferase 34 Units/L (13-39); BUN/Creatinine Ratio 34 (6-26); Bilirubin,Total 0.9 mg/dL (0.3-1.0); Blood Urea Nitrogen 20 mg/dL (8-23); Calcium 9.5 mg/dL (8.6-10.3); Carbon Dioxide 27 mEq/L (23-29); Chloride 104 mEq/L (98-107); Globulin 3.2 g/dL (2.4-3.5); Glucose 113 mg/dL (70-105); Magnesium 1.5 mg/dL (1.6-2.6); Osmolality,Calculated 283 (280-300); Phosphorous 3.1 mg/dL (2.7-4.5); Potassium 4.2 mEq/L (3.5-5.1); Sodium 135 mEq/L (136-145); Total Protein 6.2 g/dL (6.4-8.9); eGFR For African Americans > 60 (> 60); eGFR For Non-African Americans > 60 (> 60)
[2021-04-09] MEDS: atenoloL 50 MG TABLET PO SCH (08:29)
[2021-04-09] MEDS: Pregabalin 50 MG CAPSULE PO SCH ×3 (08:29→19:51)
[2021-04-09] MEDS: Lactulose Oral Soln 20 GM/30 ML UDC PO SCH ×2 (08:30→19:51)
[2021-04-09] MEDS: Furosemide 40 MG TABLET PO SCH (08:30)
[2021-04-09] MEDS: cefTRIAXone 1,000 MG in Water for inj. (sterile) 10 ML IVP SCH (16:43)
[2021-04-09] MEDS: *HR* OxyCODONE/APAP 5/325 TABLET PO PRN (17:45)
[2021-04-10] MEDS: *HR* Enoxaparin 40 MG/0.4 ML SYRINGE SQ SCH (05:02)
[2021-04-10] MEDS: Insulin LISPRO 300 UNITS/3 ML VIAL SUBQ SCH ×4 (07:12→18:07)
[2021-04-10] MEDS: atenoloL 50 MG TABLET PO SCH (10:16)
[2021-04-10] MEDS: Pregabalin 50 MG CAPSULE PO SCH ×3 (10:16→19:50)
[2021-04-10] MEDS: Lactulose Oral Soln 20 GM/30 ML UDC PO SCH ×2 (10:17→20:11)
[2021-04-10] MEDS: Furosemide 40 MG TABLET PO SCH (10:17)
[2021-04-10] MEDS: *HR* OxyCODONE/APAP 5/325 TABLET PO PRN ×2 (10:47→20:02)
[2021-04-10 15:02] LABS: Mean Corpuscular Hemoglobin 29.7 pg (28.0-33.3)
[2021-04-10 15:04] LABS: Hemoglobin 11.5 g/dL (11.5-15.4); Mean Corpuscular HGB Conc 31.9 g/dL (31.6-35.5); Mean Platelet Volume 12.6 fL (9.4-12.4); Red Blood Count 3.87 M/mcL (3.82-4.97); Red Cell Distribution Width 16.5 % (11.5-14.5); White Blood Count 2.8 K/mcL (4.3-11.1)
[2021-04-10 15:20] LABS: BUN/Creatinine Ratio 30 (6-26); Blood Urea Nitrogen 14 mg/dL (8-23); Calcium 9.4 mg/dL (8.6-10.3); Carbon Dioxide 25 mEq/L (23-29); Chloride 99 mEq/L (98-107); Glucose 163 mg/dL (70-105); Osmolality,Calculated 270 (280-300); Potassium 4.5 mEq/L (3.5-5.1); Sodium 128 mEq/L (136-145); eGFR For African Americans > 60 (> 60); eGFR For Non-African Americans > 60 (> 60)
[2021-04-10 15:22] LABS: % Iron Saturation 18 % (15-50); Iron 49 mcg/dL (50-170); Transferrin 197 mg/dL (203-362)
[2021-04-10 15:40] LABS: Ferritin 143 ng/mL (10-120)
[2021-04-10 15:45] LABS: Folate 17.5 ng/mL (3.0-16.0)
[2021-04-11] MEDS: Insulin LISPRO 300 UNITS/3 ML VIAL SUBQ SCH ×3 (00:16→13:09)
[2021-04-11] MEDS: *HR* Enoxaparin 40 MG/0.4 ML SYRINGE SQ SCH (05:41)
[2021-04-11 08:00] VITALS: O2SAT 92
[2021-04-11] MEDS: atenoloL 50 MG TABLET PO SCH (08:55)
[2021-04-11] MEDS: Furosemide 40 MG TABLET PO SCH (08:55)
[2021-04-11] MEDS: Lactulose Oral Soln 20 GM/30 ML UDC PO SCH (08:56)
[2021-04-11] MEDS: Pregabalin 50 MG CAPSULE PO SCH (08:56)
[2021-04-11] MEDS: *HR* FentaNYL PATCH 12 MCG PATCH TD SCH (08:56)
[2021-04-11 11:42] VITALS: BP 115/55; PULSE 70; TEMP 98
== END 2021-04-11 15:30 | disposition hospice, home (50) | DRG 871 ==
LOC: EMEROOARM 22:07 → 3BNU 22:07 → SUATTDRO 04-07 06:09
PROVIDERS: ADMIT Student in an Organized Health Care Education/Training Program; ATTEND Internal Medicine

== ENCOUNTER 2021-10-11 21:21 | Inpatient (IN) ==
[2021-10-11] MEDS ORDERED: Isovue-370 500 ML BOTTLE IVP ONE (22:04)
[2021-10-11] MEDS ORDERED: methylPREDNISolone 125 MG/2 ML VIAL IVP ONE (22:06)
[2021-10-11 22:46] LABS: Basophils % 0.1 %; Eosinophils # 0.1 K/mcL (0.0-0.6); Hematocrit 31.5 % (35.3-44.9); Hemoglobin 9.5 g/dL (11.5-15.4); Immature Granulocytes % 0.4 % (0-4); Immature Platelets 7.3 % (1.1-6.1); Lymphocytes # 0.5 K/mcL (0.6-4.6); Lymphocytes % 7.4 %; Mean Corpuscular HGB Conc 30.2 g/dL (31.6-35.5); Mean Corpuscular Hemoglobin 27.5 pg (28.0-33.3); Mean Platelet Volume 12.7 fL (9.4-12.4); Monocytes # 0.5 K/mcL (0.0-1.3); Monocytes % 6.3 %; Neutrophils # 6.2 K/mcL (1.6-8.9); Red Blood Count 3.46 M/mcL (3.82-4.97); Red Cell Distribution Width 18.6 % (11.5-14.5); Segmented Neutrophils % 84.8 %; White Blood Count 7.3 K/mcL (4.3-11.1)
[2021-10-11 22:47] LABS: Platelet Count 82 K/mcL (140-400)
[2021-10-11 22:52] LABS: INR 1.4; Prothrombin Time 15.5 Seconds (9.4-12.1)
[2021-10-11 22:55] LABS: Activated Partial Thrombo Time 30.2 Seconds (26.0-36.0)
[2021-10-11] MEDS ORDERED: *HR* LORazepam 2 MG/ML VIAL IVP ONE (23:01)
[2021-10-11 23:06] LABS: Alanine Aminotransferase 8 Units/L (7-52); Albumin 2.3 g/dL (3.5-5.7); Albumin/Globulin Ratio 0.5 (1.1-2.2); Alkaline Phosphatase 94 Units/L (34-104); Aspartate Amino Transferase 16 Units/L (13-39); BUN/Creatinine Ratio 45 (6-26); Bilirubin,Direct 0.4 mg/dL (0.0-0.2); Bilirubin,Indirect 0.6 mg/dL (0.0-1.0); Blood Urea Nitrogen 25 mg/dL (8-23); Calcium 9.3 mg/dL (8.6-10.3); Carbon Dioxide 24 mEq/L (23-29); Chloride 108 mEq/L (98-107); Ethanol < 10 mg/dL (Less than 10); Globulin 4.5 g/dL (2.4-3.5); Glucose 181 mg/dL (70-105); Osmolality,Calculated 295 (280-300); Potassium 4.5 mEq/L (3.5-5.1); Sodium 138 mEq/L (136-145); Total Protein 6.8 g/dL (6.4-8.9); eGFR For African Americans > 60 (> 60); eGFR For Non-African Americans > 60 (> 60)
[2021-10-11 23:07] LABS: Troponin I < 0.03 ng/mL (< 0.04)
[2021-10-11] MEDS ORDERED: Lactulose Oral Soln 20 GM/30 ML UDC PO ONE (23:56)
[2021-10-12 02:06] LABS: Bacteria,Urine Many per hpf (None-Few); Bilirubin,Urine Negative (Negative); Blood,Urine Large (Negative); Clarity,Urine Turbid (Clear); Color,Urine Yellow (Yellow); Glucose,Urine (UA) Normal (Normal); Ketones,Urine Negative (Negative); Leukocyte Esterase,Urine Large (Negative); Mucus,Urine Few per lpf (None-Few); Nitrite,Urine Negative (Negative); PH,Urine 6.5 pH Units (5.0-8.0); Protein,Urine 100 mg/dL (Neg-Trace); RBC,Urine TNTC per hpf (0-3); Specific Gravity,Urine > 1.030 (1.010-1.025); Squamous Epithelial Cell,Urine Many per hpf (None-Few); WBC,Urine TNTC per hpf (0-3)
[2021-10-12 02:23] LABS: Amphetamine Screen,Urine Negative ng/mL (Cutoff=1000); Barbiturate Screen,Urine Negative ng/mL (Cutoff=200); Benzodiazepines Screen,Urine Negative ng/mL (Cutoff=200); Cannabinoid Screen,Urine Negative ng/mL (Cutoff = 50); Cocaine Screen,Urine Negative ng/mL (Cutoff= 300); Opiate Screen,Urine Negative ng/mL (Cutoff=300); Phencyclidine Screen,Urine Negative ng/mL (Cutoff=25)
[2021-10-12] MEDS ORDERED: cefTRIAXone 1,000 MG in 0.9 % Sodium Chloride 10 ML IVP ONE (02:49)
[2021-10-12] MEDS ORDERED: *HR* LORazepam 2 MG/ML VIAL IVP ONE (03:38)
[2021-10-12] MEDS ORDERED: Ondansetron ODT 4 MG TAB.RAPDIS SL PRN (03:40)
[2021-10-12] MEDS ORDERED: Acetaminophen 325 MG TABLET PO PRN (03:40)
[2021-10-12] MEDS ORDERED: Naloxone 0.4 MG/ML INJ IVP PRN (03:40)
[2021-10-12] MEDS ORDERED: Dextrose 4 GM Chewable Tablets PO PRN ×2 (03:42)
[2021-10-12] MEDS ORDERED: D5% in Water 1,000 ML IVC PRN (03:42)
[2021-10-12] MEDS ORDERED: *HR* Dextrose 50 % in Water (Syg) 50 ML SYRINGE IVP PRN (03:42)
[2021-10-12 05:42] LABS: Hemoglobin 9.5 g/dL (11.5-15.4); Mean Platelet Volume 12.7 fL (9.4-12.4)
[2021-10-12 05:44] LABS: Hematocrit 31.5 % (35.3-44.9); Immature Platelets 6.3 % (1.1-6.1); Mean Corpuscular HGB Conc 30.2 g/dL (31.6-35.5); Mean Corpuscular Hemoglobin 27.1 pg (28.0-33.3); Mean Corpuscular Volume 89.7 fL (83.0-100.0); Red Blood Count 3.51 M/mcL (3.82-4.97); Red Cell Distribution Width 18.6 % (11.5-14.5); White Blood Count 5.7 K/mcL (4.3-11.1)
[2021-10-12] MEDS: 0.9 % Sodium Chloride 1,000 ML IVC SCH (06:00)
[2021-10-12 06:01] LABS: BUN/Creatinine Ratio 54 (6-26); Blood Urea Nitrogen 25 mg/dL (8-23); Calcium 9.3 mg/dL (8.6-10.3); Carbon Dioxide 25 mEq/L (23-29); Chloride 109 mEq/L (98-107); Chol/HDL Ratio 2.2 (0-4.9); Cholesterol 50 mg/dL (< 200); Glucose 205 mg/dL (70-105); HDL Cholesterol 23 mg/dL (40-59); LDL Cholesterol,Calculated 17 mg/dL (< 100); Magnesium 1.7 mg/dL (1.6-2.6); Osmolality,Calculated 298 (280-300); Phosphorous 2.4 mg/dL (2.7-4.5); Potassium 4.6 mEq/L (3.5-5.1); Sodium 139 mEq/L (136-145); Triglycerides 48 mg/dL (< 150); eGFR For African Americans > 60 (> 60); eGFR For Non-African Americans > 60 (> 60)
[2021-10-12] MEDS ORDERED: Lactulose Oral Soln 20 GM/30 ML UDC PO SCH (09:00)
[2021-10-12] MEDS: Insulin LISPRO 300 UNITS/3 ML VIAL SUBQ SCH ×4 (10:00→21:03)
[2021-10-12] MEDS: Lactulose Oral Soln 20 GM/30 ML UDC PO SCH ×2 (10:00→21:04)
[2021-10-12] MEDS: *HR* OxyCODONE Immed Rel 5 MG TABLET PO PRN ×2 (14:43→21:02)
[2021-10-12] MEDS: *HR* HYDROcodone/Acet 5/325 mg TABLET PO PRN (18:18)
[2021-10-12] MEDS: Melatonin 3 MG TABLET PO PRN (21:03)
[2021-10-13] MEDS: *HR* HYDROcodone/Acet 5/325 mg TABLET PO PRN ×3 (01:04→22:09)
[2021-10-13 02:47] LABS: Eosinophils % 0.2 %; Immature Granulocytes % 0.4 % (0-4); Mean Platelet Volume 13.1 fL (9.4-12.4); Red Cell Distribution Width 18.4 % (11.5-14.5)
[2021-10-13 02:49] LABS: Hematocrit 28.7 % (35.3-44.9); Hemoglobin 8.7 g/dL (11.5-15.4); Immature Platelets 6.2 % (1.1-6.1); Lymphocytes # 0.4 K/mcL (0.6-4.6); Lymphocytes % 9.3 %; Mean Corpuscular HGB Conc 30.3 g/dL (31.6-35.5); Mean Corpuscular Hemoglobin 27.3 pg (28.0-33.3); Monocytes # 0.3 K/mcL (0.0-1.3); Monocytes % 7.5 %; Red Blood Count 3.19 M/mcL (3.82-4.97); Segmented Neutrophils % 82.6 %; White Blood Count 4.5 K/mcL (4.3-11.1)
[2021-10-13 02:50] LABS: Neutrophils # 3.7 K/mcL (1.6-8.9); Platelet Count 77 K/mcL (140-400)
[2021-10-13 03:02] LABS: BUN/Creatinine Ratio 45 (6-26); Blood Urea Nitrogen 24 mg/dL (8-23); Calcium 9.6 mg/dL (8.6-10.3); Carbon Dioxide 26 mEq/L (23-29); Chloride 107 mEq/L (98-107); Glucose 124 mg/dL (70-105); Magnesium 1.6 mg/dL (1.6-2.6); Osmolality,Calculated 289 (280-300); Phosphorous 2.1 mg/dL (2.7-4.5); Potassium 4.1 mEq/L (3.5-5.1); Sodium 137 mEq/L (136-145); eGFR For African Americans > 60 (> 60); eGFR For Non-African Americans > 60 (> 60)
[2021-10-13] MEDS: Nystatin POWDER 30 GM BOTTLE TP SCH ×4 (05:10→22:10)
[2021-10-13] MEDS: *HR* OxyCODONE Immed Rel 5 MG TABLET PO PRN (05:14)
[2021-10-13] MEDS ORDERED: cefTRIAXone 1,000 MG in 0.9 % Sodium Chloride 10 ML IVP SCH (09:00)
[2021-10-13] MEDS: atenoloL 50 MG TABLET PO SCH (09:34)
[2021-10-13] MEDS: Insulin LISPRO 300 UNITS/3 ML VIAL SUBQ SCH ×4 (09:35→22:10)
[2021-10-13] MEDS: Lactulose Oral Soln 20 GM/30 ML UDC PO SCH ×4 (09:36→22:17)
[2021-10-13] MEDS: 0.9 % Sodium Chloride 1,000 ML IVC SCH (14:31)
[2021-10-13] MEDS: *HR* Heparin 5,000 UNIT/ML VIAL SQ SCH (17:02)
[2021-10-13] MEDS: Melatonin 3 MG TABLET PO PRN (22:09)
[2021-10-14] MEDS: *HR* HYDROcodone/Acet 5/325 mg TABLET PO PRN ×2 (04:54→11:18)
[2021-10-14] MEDS: *HR* Heparin 5,000 UNIT/ML VIAL SQ SCH (04:55)
[2021-10-14] MEDS: atenoloL 50 MG TABLET PO SCH (07:25)
[2021-10-14] MEDS: Lactulose Oral Soln 20 GM/30 ML UDC PO SCH (07:26)
[2021-10-14] MEDS: Insulin LISPRO 300 UNITS/3 ML VIAL SUBQ SCH (08:20)
[2021-10-14] MEDS: Nystatin POWDER 30 GM BOTTLE TP SCH (08:53)
[2021-10-14] MEDS ORDERED: levoFLOXacin 750 MG TABLET PO SCH (09:00)
[2021-10-14 10:52] VITALS: BP 129/61; PULSE 69; TEMP 97.9; O2SAT 98
== END 2021-10-14 12:43 | disposition home or self-care (01) | DRG 698 ==
LOC: EMEROOARM 21:21 → 3NENU 21:21 → SUATTDRO 10-12 03:27 → 3NENU 10-12 05:05 → 3BNU 10-14 09:38
PROVIDERS: ADMIT Family Medicine; ATTEND Internal Medicine